=== PATIENT | female | born 1990 | race Caucasian/White ===

== ENCOUNTER 2018-01-22 05:49 | Inpatient (IN) ==
[~2018-01-22 05:49] MED LIST: Famotidine 20 MG/2 ML VIAL IVP PRN; Naloxone 0.4 MG/ML INJ IVP PRN; Ondansetron 4 MG/2 ML VIAL IVP PRN; Penicillin G Potassium 5,000,000 UNIT in 0.9 % Sodium Chloride Mini Bag 100 ML IVPB ONE; Ringers Solution, Lactated 1,000 ML IVC SCH; Ringers Solution, Lactated 1,000 ML ONE; cefTRIAXone 1,000 MG in 0.9 % Sodium Chloride Mini Bag 100 ML IVPB ONE
--- NOTE | 2018-01-22 05:55 | OB/GYN History & Physical ---
Date of Encounter: 01/22/18 Time of Encounter: 05:49 Assessment and Plan (1) 36 weeks gestation of Current visit: Yes Status: Acute admitted for delivery Unknown GBS: prophylaxis to be started (2) Methamphetamine use Current visit: Yes Status: Acute UDS to be sent Positive UDS on file for 01/20/18 (3) Marijuana use Current visit: Yes Status: Acute Patient reports last used in the past 24 hours UDS to be sent to lab (4) complicated by subutex maintenance, antepartum Current visit: Yes Status: Acute Patient currently in baby centered recovery group (5) Rh negative state in antepartum period Current visit: Yes Status: Acute Rhogam evaluation following delivery (6) Non-reactive NST (non-stress test) Current visit: Yes Status: Acute FHR 125 bpm minimal variability no accels late decels noted Dr. Ojeda notified of Cat. 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 Ojeda order blood cultures and antibiotics Hospitalist consult in per Dr. Ojeda History of Present Illness Chief complaint: Contractions HPI: Ms. Mccain is a 27 year old female @ 36w0d presents to labor and delivery drowsy and unable to stand on her own. Patient reports contractions. Denies LOF. Patient reports +FM. Patent report subutex and marijuana use. Patient had an UDS on 01/20/18 that was positive for Methamphetamines, Marijuana and subutex. Patient has not showed for last 2 care visits. 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 Psychiatric history: no psych history - Past Surgical History Surgical History: no surgical history - Social History Smoking Status: Current every day smoker Smokeless Tobacco Status: No Alcohol use: none Drug use: marijuana, methamphetamine, other (subutex) Occupational status: unemployed Current living situation: Home - Independent Activity Level: Independent ambulation Recent Out of Country Travel Within the Last 8 Weeks: No Exposure or Possible Exposure to Illness During Travel: No - Family History Mother History Unknown: Yes Obstetrical History - Pregnancies : 2 Para: 1 Term: 1 : 0 Ab's: 0 Livin Medications and Allergies TraMADol [Ultram] 50 mg PO Q6H PRN #12 tablet 11/29/14 [Rx] Tylenol 02/21/15 [History] Amoxicillin 875 mg PO BID #20 tablet 03/23/15 [Rx] OxyCODONE/APAP 5/325 [Percocet 5/325] 1 each PO Q6HR PRN #8 tablet 03/23/15 [Rx] Ibuprofen [Motrin] 400 mg PO Q6-8H PRN #30 tablet 03/31/15 [Rx] Penicillin VK 500 mg PO QID #40 tablet 03/31/15 [Rx] traMADol [Ultram] 50 mg PO Q6HR PRN #10 tablet 03/31/15 [Rx] Hydrocodone/Acetaminophen [[place] 5-325 Tablet] 1 tab PO TID PRN #14 tab 04/01/15 [Rx] Cyclobenzaprine [Flexeril] 10 mg PO TID #21 tablet 04/17/15 [Rx] Hydrocodone/Acetaminophen [[place] 5-325 Tablet] 1 tab PO Q6HR PRN #7 tab 01/16/16 [Rx] Ibuprofen [Motrin] 600 mg PO Q8HR PRN #30 tablet 01/16/16 [Rx] Sulfamethoxazole/Trimeth DS [Bactrim DS] 1 each PO BID #14 tablet 01/16/16 [Rx] Allergy/AdvReac Type Severity Reaction Status Date / Time No Known Allergies Allergy Verified 11/17/14 15:46 Review of System OB - Constitutional Constitutional ROS IM: excessive sweating, no fever(s), no headache(s) - Cardiovascular Cardiovascular: no chest pain, no leg edema, no lightheadedness, no palpitations, no pedal edema, no syncope - Respiratory Respiratory: no cough - Gastrointestinal Gastrointestinal: abdominal pain, cramping, no constipation, no diarrhea, no heartburn, no nausea, no vomiting - Genitourinary Genitourinary: no abnormal vaginal bleeding, no dysuria, no flank pain, no urinary incontinence, no urinary urgency, no vaginal odor, no vaginal pruritis Exam - Constitutional Constitutional: thin, diaphoretic - HEENT HEENT: Normocephaly, Mucus Membranes Moist - Neck Neck exam: full ROM, supple - Lungs Respiratory exam: CTAB - Cardiovascular Cardiovascular exam: RRR, +S1, +S2 - Abdomen Abdomen: Present: bowel sounds normal, gravid, non tender - Extremities Extremities exam: full ROM, normal inspection Deep Tendon Reflex Grade: 2+ Normal - Cervix Dilation: 4 (per RN) - Uterus Uterus exam: Present: normal size, normal contour - Comments Comments: Patient appears to be weak and drowsy. Patient is diaphoretic. Patient has multiple scabs and scratches all over her body. FHR 125 bpm minimal variability with no accels and late decles. Cat. [address] Ojeda notified of tracing and patient exam. Dr. Ojeda to resume care of patient at this time. Dr. Ojeda at bedside. Results All other labs normal. - VTE Reasons for not Prescribing Prophylaxis: Treatment not Indicated - Low risk for VTE
[2018-01-22 06:06] LABS: Basophils % 0.2 %; Eosinophils % 0.1 %; Hematocrit 35.8 % (35.3-44.9); Immature Granulocytes % 6.5 % (0-4); Lymphocytes # 1.1 K/mcL (0.6-4.6); Lymphocytes % 5.5 %; Mean Corpuscular HGB Conc 33.5 g/dL (31.6-35.5); Mean Corpuscular Hemoglobin 28.2 pg (28.0-33.3); Mean Corpuscular Volume 84.2 fL (83.0-100.0); Mean Platelet Volume 10.2 fL (9.4-12.4); Monocytes # 1.1 K/mcL (0.0-1.3); Monocytes % 5.3 %; Neutrophils # 16.9 K/mcL (1.6-8.9); Platelet Count 101 K/mcL (140-400); Red Blood Count 4.25 M/mcL (3.82-4.97); Red Cell Distribution Width 13.9 % (11.5-14.5); Segmented Neutrophils % 82.4 %
[2018-01-22 06:21] LABS: Alanine Aminotransferase 6 Units/L (7-52); Aspartate Amino Transferase 14 Units/L (13-39); BUN/Creatinine Ratio 17 (6-26); Blood Urea Nitrogen 22 mg/dL (6-20); Lactate Dehydrogenase 200 Units/L (140-271); Uric Acid 8.7 mg/dL (2.3-7.6); eGFR For Non-African Americans 50 (> 60)
[2018-01-22 06:31] LABS: Platelet Estimate Slight Decrease (Normal)
[2018-01-22] MEDS ORDERED: Metoclopramide 10 MG/2 ML VIAL IVP ONE (06:31)
--- NOTE | 2018-01-22 06:35 | Anesthesia Evaluation PreOp ---
Date of Encounter: 01/22/18 Time of Encounter: 06:33 - Past History Planned Operation: Primary C/S Cardiac History: Denies any Significant Hx Pulmonary History: Denies Any Significant HX [employer] History: Denies Any Significant HX Other Medical History: Other (IV Drug Abuse, Marijuana use, Previous Meth abuse) Anesthesia History: No Prior Anesthetic Complications (no previous surgeries) Alcohol Use: none Drug use: marijuana, methamphetamine, other (subutex) Medications and Allergies TraMADol [Ultram] 50 mg PO Q6H PRN #12 tablet 11/29/14 [Rx] Tylenol 02/21/15 [History] Amoxicillin 875 mg PO BID #20 tablet 03/23/15 [Rx] OxyCODONE/APAP 5/325 [Percocet 5/325] 1 each PO Q6HR PRN #8 tablet 03/23/15 [Rx] Ibuprofen [Motrin] 400 mg PO Q6-8H PRN #30 tablet 03/31/15 [Rx] Penicillin VK 500 mg PO QID #40 tablet 03/31/15 [Rx] traMADol [Ultram] 50 mg PO Q6HR PRN #10 tablet 03/31/15 [Rx] Hydrocodone/Acetaminophen [[place] 5-325 Tablet] 1 tab PO TID PRN #14 tab 04/01/15 [Rx] Cyclobenzaprine [Flexeril] 10 mg PO TID #21 tablet 04/17/15 [Rx] Hydrocodone/Acetaminophen [[place] 5-325 Tablet] 1 tab PO Q6HR PRN #7 tab 01/16/16 [Rx] Ibuprofen [Motrin] 600 mg PO Q8HR PRN #30 tablet 01/16/16 [Rx] Sulfamethoxazole/Trimeth DS [Bactrim DS] 1 each PO BID #14 tablet 01/16/16 [Rx] Allergy/AdvReac Type Severity Reaction Status Date / Time No Known Allergies Allergy Verified 11/17/14 15:46 - Meds/Allergy Pre-op Review Medications Reviewed: Yes Allergies Reviewed: Yes Beta Blockers on Current Med List: No Anesthesia Results - Labs 01/22/18 05:40 01/22/18 05:40 Anesthesia Exam O2 Sat Height 1.57 m Weight 50.01 kg NPO (# of Hours): 8 Pain Scale: 6 Pain Scale Used: Numeric (1 - 10) - HEENT Pupil (Motor): Pupils equal Mallampati: II Teeth: Normal Oral Opening: Greater than 3 - [employer] LOC: Oriented [employer] Motor: Normal RUE, Normal LUE, Normal RLE, Normal LLE, Normal Face [employer] Sensory: Normal: RUE, LUE, RLE, LLE, Face - Cardiac Rhythm: Regular Murmur: None JVD: No Carotid Bruit: No - Pulmonary Breath Sounds: bilateral Clear Respiratory Effort: Symmetrical Anesthesia Assess/Plan ASA Score: 2 Modified [place] Scale for Level of Consciousness: Cooperative, oriented, and tranquil Anesthetic Plan: General (if c/s indicated) Autologous Blood: Yes Monitoring Plan: Standard Monitors Recovery Plan: PACU
[2018-01-22 06:46] LABS: Amphetamine Screen,Urine Negative ng/mL (Cutoff=1000); Barbiturate Screen,Urine Negative ng/mL (Cutoff=200)
[2018-01-22 06:47] LABS: Benzodiazepines Screen,Urine Negative ng/mL (Cutoff=300); Cannabinoid Screen,Urine Negative ng/mL (Cutoff = 50); Cocaine Screen,Urine Negative ng/mL (Cutoff= 300)
[2018-01-22 06:48] LABS: Opiate Screen,Urine Negative ng/mL (Cutoff=300); Phencyclidine Screen,Urine Negative ng/mL (Cutoff=25)
--- NOTE | 2018-01-22 07:17 | Event Note ---
Date of Encounter: 01/22/18 Time of Encounter: 07:51 Late entry- AROM blood tinged and meconium stained fluid. CVX 8/100/+2. FHT's are 140's with decreased variability. Expect .
[2018-01-22] MEDS ORDERED: Penicillin G Potassium 2,500,000 UNIT in 0.9 % Sodium Chloride 100 ML IVPB SCH (08:00)
[2018-01-22] MEDS ORDERED: Meropenem 1,000 MG in Water for inj. (sterile) 20 ML 10 ML IVP SCH (08:00)
[2018-01-22] MEDS ORDERED: 0.9 % Sodium Chloride 1,000 ML IVC ONE (08:07)
[2018-01-22] MEDS ORDERED: 0.9 % Sodium Chloride 1,000 ML ONE (08:08)
--- NOTE | 2018-01-22 08:16 | OB/GYN Procedure Note ---
Delivery - Delivery Date: 01/22/18 Provider: Rakesh Ojeda Intrapartum events: meconium, precipitous labor- <3hr Delivery induction: none Delivery monitor: external FHT, external uterine Anesthesia: local Quantitated Blood Loss: 150 - Infant (s) A Infant Delivery Date: 01/22/18 Delivery Time: 07:29 Presentation: vertex Position: JOLIE Route of delivery: Gender: Male Viability: Viable Pounds: 6 Ounces: 3 at 1 minute: 7 at 5 mins: 9 Shoulder Dystocia: not encountered Specimens collected: cord blood, venous cord gases, arterial cord gases Placenta: spontaneous Cord: 3 umbilical vessels - Repair Laceration Description: Perineal - 2nd Degree - Complications Delivery complications: meconium - Disposition Mom disposition: stable in LDR disposition: stable in LDR - Comments Comments: Pt admitted in labor at 35 weeks gestation with signs and symptoms of sepsis, likely urosepsis as she hasn't yet taken her atb's that were prescribed. She is on Meropenum and Vancomycin and given IVF. At time of amniotomy blood tinged MSF was noted and she was 7 cm. Her Lactic acid is 5.7. She is now s/p vacuum assisted vaginal delivery of liveborn male infant 6lb 3 oz with apgars of 7 at 1 min and 9 at 5 min. The vacuum was applied as pt was b/c of FHT's 50.. I did also cut MLE to expedite delivery. We has spont delivery of Meconium stained placenta. The laceration was repaired under local anesthesia with 3-0 Vicryl. Pt tolerated well. EBL 150 cc
[2018-01-22] MEDS ORDERED: Oxytocin 20 units/ LR 1000 mL 20 UNIT/1,000 ML BAG IVC ONE (09:08)
[2018-01-22] MEDS ORDERED: 0.9 % Sodium Chloride 500 ML ONE (09:12)
[2018-01-22] MEDS ORDERED: Norepinephrine 4 MG in D5% in Water 250 ML IVC SCH (09:15)
[2018-01-22] MEDS ORDERED: Aminoglycoside Consult 1 EACH MC ONE (09:24)
[2018-01-22] MEDS ORDERED: Nicotine 21 MG PATCH.TD24 TD SCH (09:30)
[2018-01-22 15:57] LABS: Acinetobacter baumannii by PCR Not Detected (Not Detect); Candida albicans by PCR Not Detected (Not Detect); Candida glabrata by PCR Not Detected (Not Detect); Candida krusei by PCR Not Detected (Not Detect); Candida parapsilosis by PCR Not Detected (Not Detect); Candida tropicalis by PCR Not Detected (Not Detect); Enterobacter cloacae Cmplx PCR Not Detected (Not Detect); Enterobacteriaceae by PCR Not Detected (Not Detect); Enterococcus by PCR Not Detected (Not Detect); Escherichia coli by PCR Not Detected (Not Detect); Klebsiella oxytoca by PCR Not Detected (Not Detect); Klebsiella pneumoniae by PCR Not Detected (Not Detect); Proteus by PCR Not Detected (Not Detect); Pseudomonas aeruginosa by PCR Not Detected (Not Detect); Serratia marcescens by PCR Not Detected (Not Detect); Staphylococcus aureus by PCR DETECTED (Not Detect); Staphylococcus by PCR DETECTED (Not Detect); Streptococcus agalactiae(B)PCR Not Detected (Not Detect); Streptococcus by PCR Not Detected (Not Detect); Streptococcus pneumoniae PCR Not Detected (Not Detect); Streptococcus pyogenes (A) PCR Not Detected (Not Detect); mecA Methicillin-Resist Gene Not Detected (Not Detect)
[2018-01-22 20:25] LABS: Acinetobacter baumannii by PCR Not Detected (Not Detect); Candida albicans by PCR Not Detected (Not Detect); Candida glabrata by PCR Not Detected (Not Detect); Candida krusei by PCR Not Detected (Not Detect); Candida parapsilosis by PCR Not Detected (Not Detect); Candida tropicalis by PCR Not Detected (Not Detect); Enterobacter cloacae Cmplx PCR Not Detected (Not Detect); Enterobacteriaceae by PCR Not Detected (Not Detect); Enterococcus by PCR Not Detected (Not Detect); Escherichia coli by PCR Not Detected (Not Detect); Klebsiella oxytoca by PCR Not Detected (Not Detect); Klebsiella pneumoniae by PCR Not Detected (Not Detect); Proteus by PCR Not Detected (Not Detect); Pseudomonas aeruginosa by PCR Not Detected (Not Detect); Serratia marcescens by PCR Not Detected (Not Detect); Staphylococcus aureus by PCR DETECTED (Not Detect); Staphylococcus by PCR DETECTED (Not Detect); Streptococcus agalactiae(B)PCR Not Detected (Not Detect); Streptococcus by PCR Not Detected (Not Detect); Streptococcus pneumoniae PCR Not Detected (Not Detect); Streptococcus pyogenes (A) PCR Not Detected (Not Detect); mecA Methicillin-Resist Gene Not Detected (Not Detect)
== END 2018-01-22 09:25 | disposition other institution (70) | DRG 560 ==
LOC: 1NENULAB
PROVIDERS: ADMIT Advanced Practice Midwife; ATTEND Advanced Practice Midwife

== ENCOUNTER 2018-03-06 11:20 | Inpatient (IN) ==
[2018-03-06] MEDS ORDERED: Aspirin 81 MG TAB.CHEW PO ONE (11:37)
[2018-03-06] MEDS ORDERED: 0.9 % Sodium Chloride 500 ML IVC ONE (11:37)
[2018-03-06 12:22] LABS: Bilirubin,Urine Negative (Negative); Blood,Urine Negative (Negative); Clarity,Urine Clear (Clear); Color,Urine Yellow (Yellow); Glucose,Urine (UA) Normal (Normal); Ketones,Urine Negative (Negative); Leukocyte Esterase,Urine Negative (Negative); Nitrite,Urine Negative (Negative); Protein,Urine Negative (Neg-Trace); Specific Gravity,Urine 1.007 (1.010-1.025); Urobilinogen,Urine Normal (Normal)
--- NOTE | 2018-03-06 12:24 | Emergency Department Note ---
Disposition Clinical Impression: Chest pain, Endocarditis, Acute renal insufficiency Disposition: Admitted As Inpatient Condition: Fair Forms: ED Satisfaction Letter Time of Disposition: 13:15 Chest Pain HPI - General Chief Complaint: ED Chest Pain Stated Complaint: Chest Pain Time Seen by Provider: 03/06/18 11:25 Source: EMS Mode of arrival: EMS Limitations: no limitations Vital Signs Reviewed: Yes Nursing Notes Reviewed: Yes - History of Present Illness HPI Narrative: Patient presents emergency room by EMS from a rehabilitation facility. She has been a resident there for the last several days after being discharged from [facility]. Patient was seen at [facility] and diagnosed with endocarditis and end up having a delivery of a child at that point as well. Since then she has been doing well but she signed out A[facility] from the [facility] for antibiotic regimen. She is still complaining of persistent chest pain secondary to the endocarditis and finally decided come in for evaluation. Pt complaint: chest pain Onset (ago): week(s) Duration: constant Pain Location: substernal Severity: moderate Severity scale (1-10): 8 Quality: sharp Pain Radiation: none Improves with: nothing Worsens with: nothing Associated symptoms: Denies: nausea, vomiting, diaphoresis Treatments prior to arrival chest pain: none - Related Data Home Medications Medication Instructions Recorded Confirmed Amoxicillin 500 mg PO QID 02/07/18 02/07/18 Buprenorphine HCl/Naloxone HCl 1 each SL TID 02/07/18 02/07/18 [Suboxone 8 mg-2 mg Sl Film] Allergies Allergy/AdvReac Type Severity Reaction Status Date / Time No Known Allergies Allergy Verified 02/07/18 23:47 All systems ED: reviewed and negative except as stated. Review of Systems: As Per HPI Constitutional: Reports: fever, chills. Denies: weakness, weight change ENT ED: Denies: ear pain, throat pain, congestion Cardiovascular: Reports: chest pain. Denies: palpitations, dyspnea on exertion, orthopnea Respiratory: Denies: cough, dyspnea, wheezes Gastrointestinal: Denies: abdominal pain, nausea, vomiting, diarrhea Genitourinary: Denies: urgency, dysuria Musculoskeletal: Denies: back pain, neck pain Neurological: Denies: headache, weakness Chest Pain PMH - Past Medical History Medical history: Reports: hepatitis, other Surgical history: Reports: no surgical history Psychiatric history: Reports: anxiety, depression, panic disorder DIRECTORY CARRIER history: Reports: no DIRECTORY CARRIER history - Social History Smoking Status: Current every day smoker Alcohol use: Reports: none Drug use: Reports: none, marijuana, methamphetamine, other Physical Exam - General Limitations: no limitations General appearance: alert - Head Head exam: atraumatic, normocephalic, normal inspection - ENT ENT exam: normal exam, normal oropharynx, mucous membranes moist - Neck Neck exam: Present: normal inspection, full ROM, trachea midline. Absent: tend erness, meningismus, lymphadenopathy - Chest Chest inspection: Present: normal inspection, symmetric chest wall rise. Absent: tenderness - Respiratory Respiratory exam: Present: normal lung sounds bilaterally. Absent: respiratory distress, wheezes - Cardiovascular Cardiovascular exam: Present: regular rate, systolic murmur - Abdominal Exam Abdominal exam: Present: soft, Non-Tender, normal bowel sounds. Absent: tenderness, distention, guarding, rebound, rigidity - Extremities Exam Extremities exam: Present: normal inspection, full ROM. Absent: tenderness - Back Exam Back exam: Present: normal inspection, full ROM. Absent: tenderness - Neurological Exam Neurological exam: Present: alert, oriented X3, CN II-XII intact, normal gait - Skin Skin exam: Present: warm, dry, intact, normal color Course Course Narrative: Patient seen and examined the time of arrival. See history of present illness. Patient is currently in a rehabilitation facility. Once the facility found out that she is diagnosed with endocarditis and she has had persistent pain that the medical coding manager there decided that she needed to be seen in the emergency room. Patient was diagnosed with endocarditis approximately 2 months ago and was transferred to [facility]. They completed the treatment course up at their facility. At that time she happened to be . She delivered wall up at their facility. The child is currently in, medical care. The patient is also in stable placement at this point for her rehabilitation. Patient signed h erself out initially without antibiotics and has not received any antibiotics for her endocarditis. She has had intermittent fevers at home ever since leaving the hospital. Patient denies any falls trauma or injury. She has not used any IV drugs in almost 2 months. She was taking Subutex until February 10 when she stopped that medication has not used anything since then. Vital signs on presentation here are stable. Patient is afebrile. Patient will have repeat blood cultures drawn 3 here in the emergency room. First dose of vancomycin will be given. CBC chemistry troponin will be collected as well. Chest x-ray to be resulted. Physical exam shows a thin appearing female. No visible track marsh on the arms. She does have an auscultated murmur. She is known to have a atrial vegetation which will be confirmed by the workup is completed up at [facility]. These records are requested at this time. Patient labs fluids given as needed and regiment will be started. Patient will require admission for definitive outpatient management planning. Otherwise the patient is clinically stable. See detailed documentation of the initial physical exam. Patient will be monitored in emergency room until decision for disposition as completed. - Reevaluation(s) Reevaluation #1: Patient is found to have acute renal insufficiency with a creatinine of 2.16. This is new in comparison to her previous creatinine. Single dose of vancomycin was given pharmacy will be recommended to renally dose. Patient will be admitted for fluid resuscitation IV antibiotics and continuation of care. The remainder of her labs are unremarkable. The paperwork from [facility] still has not been received. Patient will be informed of and disposition completed. The hospitalist Dr. Pardo reviewed the case. He is comfortable with the patient being admitted with antibiotics fluids and evaluation. I am still waiting for the records but otherwise he is comfortable with the patient being admitted for continuation of care. She has not shown any acute signs of hemodynamic instability. We will inform the patient and recommended admission for acute renal insufficiency. Appropriate intervention has been given Time: 13:14 Vital Signs Temperature 98.7 F 03/06/18 11:25 Pulse Rate 98 03/06/18 11:25 Respiratory Rate 18 03/06/18 11:25 Blood Pressure 125/84 03/06/18 11:25 O2 Sat by Pulse Oximetry 100 03/06/18 11:25 Temperature 98.7 F 03/06/18 11:25 Pulse Rate 98 03/06/18 11:25 Respiratory Rate 18 03/06/18 11:25 Blood Pressure 125/84 03/06/18 11:25 O2 Sat by Pulse Oximetry 100 03/06/18 11:25 Oxygen Delivery Oxygen Delivery Room Air Chest Pain - MDM Narrative Medical decision making narrative: Chest pain, endocarditis, history of IV drug abuse - Medical Records Medical records reviewed: Yes I reviewed the patient's medical records. - Lab Data Lab results reviewed: Yes I reviewed the patient's lab results. Result diagrams: 03/06/18 12:15 03/06/18 12:15 Lab Results 03/06/18 03/06/18 03/06/18 Range/Units 12:01 12:01 12:15 WBC (4.3-11.1) K/mcL RBC (3.82-4.97) M/mcL Hgb (11.5-15.4) g/dL Hct (35.3-44.9) % MCV (83.0-100.0) fL MCH (28.0-33.3) pg MCHC (31.6-35.5) g/dL RDW (11.5-14.5) % Plt Count (140-400) K/mcL MPV (9.4-12.4) fL Immature Gran % (0-4) % Seg Neutrophils % % Lymphocytes % % Monocytes % % Eosinophils % % Basophils % % Neutrophils # (1.6-8.9) K/mcL Lymphocytes # (0.6-4.6) K/mcL Monocytes # (0.0-1.3) K/mcL Eosinophils # (0.0-0.6) K/mcL Basophils # (0.0-0.2) K/mcL PT 10.1 (9.4-12.1) Seconds INR 0.9 APTT 28.2 (26.0-36.0) Seconds Sodium (136-145) mEq/L Potassium (3.5-5.1) mEq/L Chloride (98-107) mEq/L Carbon Dioxide (23-29) mEq/L BUN (6-20) mg/dL Creatinine (0.60-1.20) mg/dL Est GFR ( Amer) (> 60) Est GFR (Non-Af Amer) (> 60) BUN/Creatinine Ratio (6-26) Glucose (70-105) mg/dL Calculated Osmolality (280-300) Calcium (8.6-10.3) mg/dL Troponin I (< 0.04) ng/mL Urine Color Yellow (Yellow) Urine Clarity Clear (Clear) Urine pH 6.0 (5.0-8.0) pH Units Ur Specific [place] 1.007 L (1.010-1.025) Urine Protein Negative (Neg-Trace) mg/dL Urine Glucose (UA) Normal (Normal) mg/dL Urine Ketones Negative (Negative) mg/dL Urine Blood Negative (Negative) Urine Nitrite Negative (Negative) Urine Bilirubin Negative (Negative) Urine Urobilinogen Normal (Normal) mg/dL Ur Leukocyte Esterase Negative (Negative) Ur Culture Indicated? NO (NO) Urine Test Negative (Negative) 03/06/18 03/06/18 Range/Units 12:15 12:15 WBC 7.6 (4.3-11.1) K/mcL RBC 4.50 (3.82-4.97) M/mcL Hgb 12.5 (11.5-15.4) g/dL Hct 39.1 (35.3-44.9) % MCV 86.9 (83.0-100.0) fL MCH 27.8 L (28.0-33.3) pg MCHC 32.0 (31.6-35.5) g/dL RDW 15.9 H (11.5-14.5) % Plt Count 260 (140-400) K/mcL MPV 8.9 L (9.4-12.4) fL Immature Gran % 0.7 (0-4) % Seg Neutrophils % 62.9 % Lymphocytes % 26.8 % Monocytes % 5.8 % Eosinophils % 3.0 % Basophils % 0.8 % Neutrophils # 4.8 (1.6-8.9) K/mcL Lymphocytes # 2.0 (0.6-4.6) K/mcL Monocytes # 0.4 (0.0-1.3) K/mcL Eosinophils # 0.2 (0.0-0.6) K/mcL Basophils # 0.1 (0.0-0.2) K/mcL PT (9.4-12.1) Seconds INR APTT (26.0-36.0) Seconds Sodium 139 (136-145) mEq/L Potassium 4.0 (3.5-5.1) mEq/L Chloride 106 (98-107) mEq/L Carbon Dioxide 24 (23-29) mEq/L BUN 11 (6-20) mg/dL Creatinine 0.49 L (0.60-1.20) mg/dL Est GFR ( Amer) > 60 (> 60) Est GFR (Non-Af Amer) > 60 (> 60) BUN/Creatinine Ratio 22 (6-26) Glucose 92 (70-105) mg/dL Calculated Osmolality 287 (280-300) Calcium 9.6 (8.6-10.3) mg/dL Troponin I < 0.03 (< 0.04) ng/mL Urine Color (Yellow) Urine Clarity (Clear) Urine pH (5.0-8.0) pH Units Ur Specific [place] (1.010-1.025) Urine Protein (Neg-Trace) mg/dL Urine Glucose (UA) (Normal) mg/dL Urine Ketones (Negative) mg/dL Urine Blood (Negative) Urine Nitrite (Negative) Urine Bilirubin (Negative) Urine Urobilinogen (Normal) mg/dL Ur Leukocyte Esterase (Negative) Ur Culture Indicated? (NO) Urine Test (Negative) - Radiology Data Radiology results reviewed: Yes I reviewed the patient's radiology results. Chest x-ray reviewed by myself and confirmed by the radiologist showing no acute etiology - EKG Data EKG attestation: Yes I reviewed and interpreted this EKG. EKG results narrative: EKG shows sinus rhythm. Heart rate of 97. NV interval 154. QRS duration of 84. QTC of 432. No acute signs of ST segment elevation or abnormality. No acute signs of conduction delays. [place] appears to be normal. No acute signs of WPW or Brugada syndrome. Heart Score - Score History: Slightly Suspicious EKG: Normal Age: Less than 45 Risk Factors: 1-2 risk factors Troponin: Less than normal limit HEART Score Total: 1
[2018-03-06 12:34] LABS: Basophils # 0.1 K/mcL (0.0-0.2); Basophils % 0.8 %; Eosinophils # 0.2 K/mcL (0.0-0.6); Hematocrit 39.1 % (35.3-44.9); Hemoglobin 12.5 g/dL (11.5-15.4); Immature Granulocytes % 0.7 % (0-4); Lymphocytes % 26.8 %; Mean Corpuscular Hemoglobin 27.8 pg (28.0-33.3); Mean Corpuscular Volume 86.9 fL (83.0-100.0); Mean Platelet Volume 8.9 fL (9.4-12.4); Monocytes # 0.4 K/mcL (0.0-1.3); Monocytes % 5.8 %; Neutrophils # 4.8 K/mcL (1.6-8.9); Platelet Count 260 K/mcL (140-400); Red Cell Distribution Width 15.9 % (11.5-14.5); Segmented Neutrophils % 62.9 %
[2018-03-06 12:43] LABS: INR 0.9; Prothrombin Time 10.1 Seconds (9.4-12.1)
[2018-03-06 12:46] LABS: Activated Partial Thrombo Time 28.2 Seconds (26.0-36.0)
[2018-03-06 12:52] LABS: Troponin I < 0.03 ng/mL (< 0.04)
[2018-03-06 12:54] LABS: BUN/Creatinine Ratio 22 (6-26); Blood Urea Nitrogen 11 mg/dL (6-20); Calcium 9.6 mg/dL (8.6-10.3); Carbon Dioxide 24 mEq/L (23-29); Chloride 106 mEq/L (98-107); Glucose 92 mg/dL (70-105); Osmolality,Calculated 287 (280-300); Sodium 139 mEq/L (136-145); eGFR For Non-African Americans > 60 (> 60)
--- NOTE | 2018-03-06 13:19 | Emergency Department Note ---
START Narrative - START START: Documentation was placed on patient this time. The patient does not show any acute signs of acute kidney injury. Patient will be monitored here until the paperwork from [facility] was collected and then disposition will be determined. 1415 Patient does have what appears to be MRSA bacteremia from labs at [facility]. She has not been clinically treated for this. Cefepime has been added on to the treatment course at this time for endocarditis. Patient will be admitted for continuation of care and outpatient director security risk management Dr. Pardo has been informed and will continue the care in the hospital setting. Patient is otherwise stable will be monitored here in the emergency department until the admission process is completed. No other recommendations or concerns. Patient will be admitted for continuation of care
[2018-03-06] MEDS ORDERED: Cefepime HCl 2,000 MG in 0.9 % Sodium Chloride Mini Bag 100 ML IVPB STA (14:29)
--- NOTE | 2018-03-06 15:19 | Internal Med History&Physical ---
Date of Encounter: 03/06/18 Time of Encounter: 15:00 Internal Medicine - H&P: HPI Chief complaint: chest pain, send from rehab History of present illness: Ms. Mccain is a 27 year old female with past medical history of endocarditis and pneumonia was sent from drug rehabilitation facility because of chest pain. Patient was here in the month of December when she was and was found to have endocarditis. After delivery patient was transferred to [facility] for further ca re patient received IV antibiotics and was told she had pneumonia. She was in ICU for 2-3 days. She was discharged to a correction with IV antibiotics however she left AMA because she felt worried about her baby. She has not had any antibiotic since then. She has been in a drug rehabilitation program for last several days however because of the on and off chest pain patient was asked by the doctor to come to ER. Patient has been having on-and-off chest pain aggravated by deep breath since she was discharged from [facility]. Pain is mostly on the left side of her chest occasionally on the right side. It is associated with fevers as well as night time chills. She has not been able to sleep well difficult due to chills. She has associated skin lesions on both her arms and both her legs. Patient's last IV drug use was before her last admission. Per ER doctor patient likely had MRSA bacteremia at [facility]. Patient was started on vancomycin and cefepime in the ER and received IV fluids. On interview patient confirms above-mentioned history. Currently with mild chest pain worsened with deep breaths. Denies any nausea vomiting. Admits to having some palpitation. Denies any difficulty breathing. Past Med Surg Social Fam HX - Past Medical History Attestation: Yes The following information was validated with the patient. Medical history: hepatitis, other Additional medical history: HEP C, DRUG USE , PNEUMONIA, endocarditis, IVDU Psychiatric history: anxiety, depression, panic disorder - Past Surgical History Surgical History: no surgical history - Social History Smoking Status: Current every day smoker Smokeless Tobacco Status: No Alcohol use: none Drug use: none, marijuana, methamphetamine, IV Drug Use, other - Family History Father Hx Family Psychosocial Disorders: Yes (drug overdose) Internal Medicine - H&P: Meds Amoxicillin 500 mg PO QID 02/07/18 [History] Buprenorphine HCl/Naloxone HCl [Suboxone 8 mg-2 mg Sl Film] 1 each SL TID 02/07/18 [History] Allergy/AdvReac Type Severity Reaction Status Date / Time No Known Allergies Allergy Verified 02/07/18 23:47 All Systems PM: A 10-system review of systems was performed and is negative for pertinent findings except as documented above in the HPI. - Constitutional Vitals: Temp Pulse Resp BP Pulse Ox 98.7 F 103 18 121/81 100 03/06/18 11:25 03/06/18 13:19 03/06/18 13:19 03/06/18 13:19 03/06/18 13:19 Exam: Constitutional: Vitals as noted. Conversant. No Apparent Distress. Eyes : Sclera white, conjunctiva clear, no lid lag, PEARLA. ENT : Grossly normal hearing. Oropharyngeal exam unremarkable. Moist mucus membranes. No JVD, no cervical lymphadenopathy. no thyromegaly or mass. Respiratory : Occasional rhonchi on Left anterior and posterior lung garcia. No accessory muscle use, rales, Cardiovascular : Tachycardic +S1, +S2. Early diastolic murmur, no gallop, rubs. No chest wall tenderness GI/Abdominal : Soft, Non-tender, Non-distended, normal bowel sounds, soft, no peritoneal signs. no orgenomegaly or mass appreciated. no hernia. Musculoskeletal: no deformity noted. no edema or cyanosis. warm extremities, pulses palpable and symmetrical in UE/LE. no calf tenderness. Neurological: AO X3, CN II-XII grossly intact, grossly normal motor and sensory exam. Skin: Papular non-tender lesion located on both arms and legs. Pych: tearful, Intact memory. AOx3. Internal Med - H&P Results - Labs CBC & Chem 7: 03/06/18 12:15 03/06/18 12:15 Labs: Short CBC 03/06/18 Range/Units 12:15 WBC 7.6 (4.3-11.1) K/mcL Hgb 12.5 (11.5-15.4) g/dL Hct 39.1 (35.3-44.9) % Plt Count 260 (140-400) K/mcL Neutrophils # 4.8 (1.6-8.9) K/mcL BMP 03/06/18 12:15 Sodium 139 Potassium 4.0 Chloride 106 Carbon Dioxide 24 BUN 11 Creatinine 0.49 L Glucose 92 Calcium 9.6 Cardiac Enzymes 03/06/18 Range/Units 12:15 Troponin I < 0.03 (< 0.04) ng/mL Urine 03/06/18 Range/Units 12:01 Urine Color Yellow (Yellow) Urine Clarity Clear (Clear) Urine pH 6.0 (5.0-8.0) pH Units Ur Specific [place] 1.007 L (1.010-1.025) Urine Protein Negative (Neg-Trace) mg/dL Urine Glucose (UA) Normal (Normal) mg/dL - Impressions ITS Impressions Chest X-Ray 03/06/18 11:37 IMPRESSION: Improving but persistent bilateral thin wall cavitary lesions concerning for septic emboli. Correlate CT imaging as warranted. D/ / 03/06/2018 13:50:33 Rich Michel MD / patricia Interpreting Provider: Rich Michel MD - Assessment and plan (1) Endocarditis Current Visit: Yes Status: Acute Assessment and plan: - Patient with history of endocarditis not fully treated. Patient has stigmata of embolic phenomena with skin lesion as well as cavitary lung lesion - Report form ER doctor with history of MRSA at [facility] - EKG without any conduction pathology - Continue patient on vancomycin and cefepime - Continue IV fluids - Blood cultures collected in the ER - Obtain echocardiogram - Infectious disease consulted. Qualifiers: Endocarditis type: infective Infective endocarditis organism: bacterial Chronicity: unspecified Qualified Code(s): I33.0 - Acute and subacute infective endocarditis (2) Cavitary lesion of lung Current Visit: Yes Status: Acute Assessment and plan: - Likely representing embolic phenomena from endocarditis - Continue empiric antibiotics (3) Chest pain Current Visit: Yes Status: Acute Assessment and plan: - Likely pleuritic pain from septic emboli in the lungs - Troponin 1 negative and EKG without ischemic changes Qualifiers: Chest pain type: precordial pain Qualified Code(s): R07.2 - Precordial pain (4) Methamphetamine use Current Visit: No Status: Acute Assessment and plan: - Patient on Subutex - We will come form with pharmacy and start her after. (5) Anxiety Current Visit: Yes Status: Acute Assessment and plan: - Patient mentions she is on hydroxyzine - We will confirm with her pharmacy and start her on medication - Time Spent With Patient Total time spent is greater than 50% in coordination of care (as documented) at patient's floor/unit and/or counseling patient:
[2018-03-06] MEDS ORDERED: Naloxone 0.4 MG/ML INJ IVP PRN (15:44)
[2018-03-06] MEDS ORDERED: Ringers Solution, Lactated 1,000 ML IVC SCH (16:00)
[2018-03-06] MEDS ORDERED: Ketorolac 15 MG/ML VIAL IVP ONE (20:48)
[2018-03-06] MEDS: Ringers Solution, Lactated 1,000 ML IVC SCH (21:22)
[2018-03-06] MEDS ORDERED: Melatonin 3 MG TABLET PO ONE (21:43)
[2018-03-06] MEDS ORDERED: traMADol 50 MG TABLET PO ONE (22:42)
--- NOTE | 2018-03-06 22:47 | Event Note ---
Date of Encounter: 03/06/18 Time of Encounter: 10:15 Notified by nurse of patient continuing to complain of chest pain and headache. Assessed patient at bedside. States chest pain and headache is the same as shes been having without any changes, however pain medication she received earlier was not effective. Vitals remain stable, patient on tele monitor, no new symptoms. Will order ultram and tylenol.
[2018-03-06] MEDS: Nicotine 7 MG PATCH.TD24 TD SCH (22:58)
[2018-03-07] MEDS: Cefepime HCl 2,000 MG in Water for inj. (sterile) 20 ML 20 ML IVP SCH ×2 (00:10→08:14)
[2018-03-07 05:44] LABS: Basophils % 0.3 %; Eosinophils # 0.4 K/mcL (0.0-0.6); Hematocrit 36.8 % (35.3-44.9); Hemoglobin 11.5 g/dL (11.5-15.4); Immature Granulocytes % 0.3 % (0-4); Lymphocytes # 2.3 K/mcL (0.6-4.6); Lymphocytes % 26.3 %; Mean Corpuscular HGB Conc 31.3 g/dL (31.6-35.5); Mean Corpuscular Hemoglobin 27.5 pg (28.0-33.3); Mean Platelet Volume 9.4 fL (9.4-12.4); Monocytes # 0.5 K/mcL (0.0-1.3); Monocytes % 5.7 %; Neutrophils # 5.5 K/mcL (1.6-8.9); Platelet Count 234 K/mcL (140-400); Red Blood Count 4.18 M/mcL (3.82-4.97); Red Cell Distribution Width 16.1 % (11.5-14.5); Segmented Neutrophils % 62.4 %
[2018-03-07] MEDS ORDERED: traMADol 50 MG TABLET PO ONE ×2 (05:53→20:43)
[2018-03-07 06:04] LABS: BUN/Creatinine Ratio 25 (6-26); Blood Urea Nitrogen 14 mg/dL (6-20); Calcium 9.5 mg/dL (8.6-10.3); Carbon Dioxide 23 mEq/L (23-29); Chloride 109 mEq/L (98-107); Glucose 85 mg/dL (70-105); Osmolality,Calculated 284 (280-300); Potassium 4.5 mEq/L (3.5-5.1); Sodium 137 mEq/L (136-145); eGFR For Non-African Americans > 60 (> 60)
[2018-03-07] MEDS: Ringers Solution, Lactated 1,000 ML IVC SCH ×3 (07:40→21:00)
[2018-03-07] MEDS ORDERED: Aminoglycoside Consult 1 EACH MC ONE (08:08)
--- NOTE | 2018-03-07 08:35 | Infectious Disease Consult ---
Date of Encounter: 03/07/18 Time of Encounter: 12:11 Assessment and Plan (1) MSSA bacteremia Status: Acute Assessment and plan: Previous cultures positive for MSSA. 01/22/18 MSSA 2/2 ([facility]) 01/22/18 C. dublinienesis 1/2 ([facility]) 01/23/18 MSSA 2/2 01/24/18 MSSA 2/2 01/25/18 MSSA 2/2 01/26/18 negative x 2 01/27/18 MSSA 2/2 01/28/18 negative x 2 Likely secondary to IV drug use. Complicated due to septic emboli in the lungs and endocarditis. Inadequately treated due to the patient leaving [facility] AMA. Not treated since 01/29/18. No sepsis criteria at this time. Currently on Vanc and Cefepime. Recommendations: Await repeat blood cultures. Check HIV and Hepatitis B serologies. Repeat TTE pending. Consider MRI of the brain to rule out septic emboli. Discontinue Cefepime. Discontinue Vancomycin. Start nafcillin 2 grams IV Q4H. Start fluconazole 800mg IV x 1 dose, then 400mg IV daily. Duration of treatment depends on the clinical picture, but likely 6-8 weeks of IV antibiotics. student services director to assist with discharge planning. Monitor renal and liver function and dose-adjust antibiotics. Avoid insertion of long-term IV access until blood cultures are negative x 48 hours. (2) Endocarditis Status: Acute Assessment and plan: Location: Tricuspid valve. Diagnosed January 2018 at [facility] per TTE. Causative organism: MSSA and C. dublienesis. Inadequately treated due to the patient signing out AMA from [facility]. Antibiotic recommendations as above. Qualifiers: Endocarditis type: infective Infective endocarditis organism: bacterial Chronicity: unspecified Qualified Code(s): I33.0 - Acute and subacute infective endocarditis (3) Candidemia Status: Acute Assessment and plan: Causative organism: C. dublieniensis. Blood cultures drawn 01/22/18 at [facility] were positive 1/2 sets. Repeat blood cultures were negative for candidemia. Contaminant vs. true infection. Treated with caspofungin x6 days at [facility], but no treatment since 01/29/18. Previous opthalmology exam negative for endopthalmitis. (4) Cavitary lesion of lung Status: Acute Assessment and plan: Likely septic emboli from bacteremia and endocarditis. CXR 03/06/18 showed improved but persistent bilateral thin-walled cavitary lesions concerning for septic emboli. Antibiotic recommendations as above. (5) Chest pain Status: Acute Assessment and plan: Likely secondary to cavitary lung lesions/endocarditis. Qualifiers: Chest pain type: precordial pain Qualified Code(s): R07.2 - Precordial pain (6) Headache Status: Acute Assessment and plan: Location: left frontal. Etiology unclear. New-onset since bacteremia. Denies blurred vision or floaters. Consider CT/MRI of the brain to evaluate for septic emboli. Qualifiers: Headache type: unspecified Headache chronicity pattern: episodic headache Intractability: not intractable Qualified Code(s): R51 - Headache (7) H/O intravenous drug use in remission Status: Acute Assessment and plan: Previous use of IV suboxone. Known Hep C positive. Check hepatitis B serologies and HIV. Infectious Disease HPI - Data of Consult Patient: new to practice Consult date: 03/07/18 Requesting Physician: Nathan Ross MD Primary Care Provider: Carol Garcia - Consult Narrative Reason for consult: Endocarditis History of present illness: Ms. Mccain is a 27 year old female with medical history of hepatitis C secondary to IV drug use currently in remission, pneumonia, MSSA bacteremia with tricuspid valve endocarditis diagnosed 01/22/18 that has not completed adequate treatment. The patient was admitted to the hospital 03/06/18 for chest pain, endocarditis. We are consulted 03/07/80. Hematocrit recommendations for endocarditis. Briefly, the patient a 27-year-old female with past medical history as stated above. The patient has a history of IV drug use with last use about 2 months ago. Apparently, she presented to the [facility] on 01/22 at which time she was 36 weeks and having contractions. She has spontaneous vaginal delivery, but developed sepsis post delivery. Blood cultures were drawn and she was started on meropenem and vancomycin and was transferred to [facility] where she was diagnosed with MSSA bacteremia, tricuspid valve endocarditis, bilateral pneumonia, and septic emboli to the lungs. She was also diagnosed with candidemia. She was evaluated by CTS, but did not require surgical intervention. Opthalmological exam was negative for endopthalmitis. She was discharged AGAINST MEDICAL ADVICE 01/29/18 after she was AWOL from the hospital unit that she was assigned to him there is evidence that she had been tampering with her IV. She has not been on any IV antibiotics since then. She recently checked herself into a drug rehabilitation program and the neuropsychology medical consultant there advised her to come to the emergency department for evaluation due to chest pain. Upon arrival, the patient was tachycardic, but was otherwise hemodynamically stable and afebrile. White blood cell count is normal. Kidney function is fine. Urinalysis was negative. Blood cultures were obtained 3 sets and are pending. She had a chest x-ray showed improved but persistent bilateral thinwall cavitary lesions concerning for septic emboli. She was started on vancomycin and cefepime and admitted to the hospital for f urther evaluation. Since admission, the patient has remained afebrile hemodynamically stable. Her white blood cell count remains normal. Currently, she is on Vanco and cefepime. We have been asked to evaluate and make further recommendations. During my exam today, the patient endorsed a history as stated above. She states she has been having some intermittent chills, but denies any fevers or r igors. Reports some left frontal headaches that have been ongoing since she was originally diagnosed with bacteremia. She denies any dizziness or blurred vision or floaters. She denies any congestion, earache, or sore throat. She reports diffuse chest pain that is constant and aching and is sometimes worse with cough or deep inspiration. She denies any cough or hemoptysis. She reports some intermittent shortness of breath. She reports some nausea, but denies vomiting or diarrhea. States her appetite has been good. She denies abdominal pain or urinary complaints or vaginal bleeding/discharge. She denies any oral thrush or open skin lesions. The patient recently checked herself into an inpatient drug rehabilitation facility. She was recently in the [facility] after she was arrested on a probation violation. She smokes about half pack cigarettes per day. She states she has been off illicit drugs for about 2 months and was clean for the majority of her . She is known to be hep C positive. Her hep B status is unknown. She denies any other known chronic infectious diseases. She denies recent travel outside the [facility]. CC: Nathan Ross MD Past Med Surg Social Fam HX - Past Medical History Attestation: Yes The following information was validated with the patient. Source: patient, old records reviewed, nursing notes reviewed Medical history: hepatitis, other Additional medical history: HEP C, DRUG USE , PNEUMONIA, endocarditis, IVDU, MSSA bacteremia, candidemia, septic emboli to the lungs Psychiatric history: anxiety, depression, panic disorder - Past Surgical History Surgical History: no surgical history - Social History Smoking Status: Current every day smoker Packs per day: 0.5 Smokeless Tobacco Status: No Alcohol use: none Drug use: none, marijuana, methamphetamine, IV Drug Use, other Occupational status: unemployed Current living situation: Home, With Family Activity Level: Independent ambulation Recent Out of Country Travel Within the Last 8 Weeks: No Exposure or Possible Exposure to Illness During Travel: No - Family History Father Hx Family Psychosocial Disorders: Yes (drug overdose) Infectious Disease-CN:Meds Buprenorphine HCl/Naloxone HCl [Suboxone 8 mg-2 mg Sl Film] 1 each SL TID 02/07/18 [History] Allergy/AdvReac Type Severity Reaction Status Date / Time No Known Allergies Allergy Verified 02/07/18 23:47 All systems: reviewed and no additional remarkable complaints except as stated Exam - Constitutional Vitals: Temp Pulse Resp BP Pulse Ox 99.0 F 93 16 113/71 99 03/07/18 07:04 03/07/18 07:04 03/07/18 07:04 03/07/18 07:04 03/07/18 07:04 General appearance: cooperative, no acute distress, thin - Head Head exam: Present: atraumatic, normal inspection, normocephalic - Eye Eye exam: Present: EOMI, normal appearance, PERRL Pupils: Present: normal accommodation Additional comments: No subconjunctival hemorrhage noted. - ENT ENT exam: Present: mucous membranes moist, normal oropharynx - Neck Neck exam: Present: normal inspection - Respiratory Respiratory exam: Present: CTAB. Absent: rales, respiratory distress, rhonchi, wheezes - Cardiovascular Cardiovascular exam: Present: RRR, +S1, +S2, systolic murmur - GI/Abdominal GI/Abdominal exam: Present: normal bowel sounds, soft. Absent: distended, tenderness - Extremities Exam Extremities exam: Present: normal inspection. Absent: joint swelling, pedal edema, tenderness - Back Exam Back exam: Present: normal inspection. Absent: paraspinal tenderness, vertebral tenderness - Neurological Exam Neurological exam: Present: alert, oriented X3, no focal deficits - Psychiatric Psychiatric exam: Present: normal affect, normal mood - Skin Skin exam: Present: dry, intact, normal color, warm Additional comments: No endocarditis stigmata noted. Unable to assess the toenail beds due to nail bulgarian. Infectious Disease CN: Results - Labs CBC & Chem 7: 03/07/18 04:20 03/07/18 04:20 Cultures: Cultures 03/06/18 12:15 Blood Culture - Preliminary Peripheral Venipuncture Culture is incubating and being continuously monitored for growth. Final report to follow. 03/06/18 12:15 Blood Culture - Preliminary Peripheral Venipuncture Culture is incubating and being continuously monitored for growth. Final report to follow. Serology: Serology 03/06/18 03/06/18 Range/Units 12:01 12:01 Urine Color Yellow (Yellow) Urine Clarity Clear (Clear) Urine pH 6.0 (5.0-8.0) pH Units Ur Specific [place] 1.007 L (1.010-1.025) Urine Protein Negative (Neg-Trace) mg/dL Urine Glucose (UA) Normal (Normal) mg/dL Urine Ketones Negative (Negative) mg/dL Urine Blood Negative (Negative) Urine Nitrite Negative (Negative) Urine Bilirubin Negative (Negative) Urine Urobilinogen Normal (Normal) mg/dL Ur Leukocyte Esterase Negative (Negative) Ur Culture Indicated? NO (NO) Urine Test Negative (Negative) Consult Discharge Plan - Plan Referrals: Carol Garcia CNP [Primary Care Provider] - 03/14/18 9:00 am (Please follow up as schedule...) - Attending Attestation I examined this patient and my medical decision-making was reviewed with the Resident Physician. I agree with the documented findings, disposition and treat ment plan as described except to the extent set forth below. This is an addendum to original report dictated by Theresa Hall CNP. Please refer to Theresa's note for full detail. Patient is a 27-year-old woman with a very sad history of IV drug use, hepatitis C, persistent MSSA bacteremia with endocarditis of the tricuspid valve diagnosed in January [facility] with septic emboli to the lungs who signed out AGAINST MEDICAL ADVICE because she delivered a baby and she tells me that they cut her bracelet and she could not go see him presented now for chest pain getting worse with sputum productive cough. Since admission patient had one SIRS criteria which is a tachycardia. Labs reviewed x-ray reviewed cultures pending. Physical exam negative for endocarditis stigmata. No conjunctival hemorrhage. No Janeway lesion or [place] nodes. I did not really appreciate a murmur. Patient was very emotional and crying when I was in the room and tells me that children services have her baby and it and give it to her sister the the month until she gets out. Assessment and plan: Endocarditis of tricuspid valve with MSSA bacteremia complicated with septic emboli to the lungs Recent candidemia with Lilo dublinieinsis susceptible to fluconazole treated for only like a week Chest pain likely secondary to septic emboli Hepatitis C IV drug use has been clean for 2 months Recommendations Patient needs to be treated for the endocarditis with methicillin for at least 6-8 weeks maybe longer. We will start empirically the fluconazole until the repeat blood cultures come back. If the patient is no longer candidemia by Saturday and the results are still negative I will stop the fluconazole. Monitor labs and for drug toxicity We will continue to follow
--- NOTE | 2018-03-07 11:46 | Internal Med Progress Note ---
Hospitalist Progress Note - Encounter Date of Encounter: 03/07/18 Time of Encounter: 11:44 - Subjective Interval History: Patient seen and examined this morning at bedside. Denies new complaint. Still with on and off chest pain worse with deep breathing. Some chills overnight. No overnight fevers noted. Denies any abdominal pain diarrhea or urinary complaints. Denies any weakness numbness or tingling or vision changes. - Exam Vitals: Temp Pulse Resp BP Pulse Ox 98.8 F 88 16 106/65 98 03/07/18 11:18 03/07/18 11:18 03/07/18 11:18 03/07/18 11:18 03/07/18 11:18 Exam: Constitutional: Vitals as noted. Conversant. No Apparent Distress. Respiratory : CTAB. No accessory muscle use, rales, Cardiovascular : RRR, +S1, +S2. Early soft diastolic murmur, no gallop, rubs. No chest wall tenderness GI/Abdominal : Soft, Non-tender, Non-distended, normal bowel sounds, soft, no peritoneal signs. no orgenomegaly or mass appreciated. no hernia. Musculoskeletal: no deformity noted. no edema or cyanosis. warm extremities, pulses palpable and symmetrical in UE/LE. no calf tenderness. Neurological: AO X3, CN II-XII grossly intact, grossly normal motor and sensory exam. Skin: Papular non-tender lesion located on both arms and legs. - Assessment and Plan (1) Endocarditis Current Visit: Yes Status: Acute (2) Cavitary lesion of lung Current Visit: Yes Status: Acute (3) Chest pain Current Visit: Yes Status: Acute (4) Methamphetamine use Current Visit: No Status: Acute (5) Anxiety Current Visit: Yes Status: Acute - Summary of Assessment and Plan Summary of Assessment and Plan: Endocarditis - h/o endocarditis not fully treated. Patient has stigmata of embolic phenomena with skin lesion as well as cavitary lung lesion. h/o MSSA bacteremia - Some [facility] records available. ECHO from [facility] with 1 cm long vegetation on TV with mild-mod TR on 01/23/18. Blood culture form 01/25/18 positive for Staph aureus pending C/S from [facility]. Also had Aretha bacteremia. Patien was getting Nafcillin. However left AMA and did not get further antiotics. - Report form ER doctor with history of MRSA at [facility]. Lee find that record. - EKG without any conduction pathology - c/w vancomycin and cefepime. - c/w IV fluids - Blood cultures collected in the ER. Will obtain fungal cultures given h/o aretha bacteremia. - f/u echocardiogram - Infectious disease consulted. Cavitary lesion of lung - Likely representing septic embolic phenomena from endocarditis - Continue empiric antibiotics Chest pain - Likely pleuritic pain from septic emboli in the lungs - Troponin 1 negative and EKG without ischemic changes Methamphetamine use - Discussed risk of continued use - Not currently on subutex Anxiety - she is on hydroxyzine at home - We will confirm with her pharmacy and start her on medication DVT ppx - sc heparin - Time Spent with Patient Total time spent is greater than 50% in coordination of care (as documented) at patient's floor/unit and/or counseling patient: Internal Medicine: Result - Labs CBC & Chem 7: 03/07/18 04:20 03/07/18 04:20 Labs: Short CBC 03/06/18 03/07/18 Range/Units 12:15 04:20 WBC 7.6 8.8 (4.3-11.1) K/mcL Hgb 12.5 11.5 (11.5-15.4) g/dL Hct 39.1 36.8 (35.3-44.9) % Plt Count 260 234 (140-400) K/mcL Neutrophils # 4.8 5.5 (1.6-8.9) K/mcL BMP 03/06/18 03/07/18 12:15 04:20 Sodium 139 137 Potassium 4.0 4.5 Chloride 106 109 H Carbon Dioxide 24 23 BUN 11 14 Creatinine 0.49 L 0.56 L Glucose 92 85 Calcium 9.6 9.5 Cardiac Enzymes 03/06/18 Range/Units 12:15 Troponin I < 0.03 (< 0.04) ng/mL Urine 03/06/18 Range/Units 12:01 Urine Color Yellow (Yellow) Urine Clarity Clear (Clear) Urine pH 6.0 (5.0-8.0) pH Units Ur Specific [place] 1.007 L (1.010-1.025) Urine Protein Negative (Neg-Trace) mg/dL Urine Glucose (UA) Normal (Normal) mg/dL - ABG Interpretation ABG results: PT/INR, D-dimer PT 10.1 Seconds (9.4-12.1) 03/06/18 12:15 - Impressions Impressions Chest X-Ray 03/06/18 11:37 IMPRESSION: Improving but persistent bilateral thin wall cavitary lesions concerning for septic emboli. Correlate CT imaging as warranted. D/ / 03/06/2018 13:50:33 Rich Michel MD / patricia Interpreting Provider: Rich Michel MD Consult Discharge Plan - Plan Referrals: Carol Garcia CNP [Primary Care Provider] - 03/14/18 9:00 am (Please follow up as schedule...) (1) Endocarditis Qualifiers: Endocarditis type: infective Infective endocarditis organism: bacterial Chronicity: unspecified Qualified Code(s): I33.0 - Acute and subacute infective endocarditis (3) Chest pain Qualifiers: Chest pain type: precordial pain Qualified Code(s): R07.2 - Precordial pain
[2018-03-07] MEDS ORDERED: Nafcillin 2,000 MG in D5% in Water (Mini-Bag+) 100 ML IVPB SCH (14:00)
[2018-03-07] MEDS: *HR* Heparin 5,000 UNIT/ML VIAL SQ SCH ×2 (14:31→21:03)
[2018-03-07] MEDS: Nafcillin 2,000 MG in 0.9 % Sodium Chloride Mini Bag 100 ML IVPB SCH ×2 (15:02→21:20)
[2018-03-07] MEDS: Fluconazole 400 MG/200 ML 400 MG/200 ML BAG IVPB SCH ×2 (15:04→17:39)
[2018-03-07 15:58] LABS: HIV-1&2 Antibody & p24 Ag Nonreactive (Nonreactive); Hepatitis B Surface Antigen Nonreactive (Nonreactive)
[2018-03-07 16:10] LABS: Hepatitis B Surface Antibody 220.27 mIU/mL
[2018-03-07] MEDS ORDERED: Metoclopramide 10 MG/2 ML VIAL IVP ONE (20:39)
[2018-03-07] MEDS: Nicotine 7 MG PATCH.TD24 TD SCH (21:21)
[2018-03-08] MEDS: Nafcillin 2,000 MG in 0.9 % Sodium Chloride Mini Bag 100 ML IVPB SCH ×7 (00:03→21:22)
[2018-03-08] MEDS: Ibuprofen 400 MG TABLET PO PRN (04:09)
[2018-03-08] MEDS: Acetaminophen 325 MG TABLET PO PRN (04:09)
[2018-03-08] MEDS: *HR* Heparin 5,000 UNIT/ML VIAL SQ SCH ×3 (05:23→21:22)
[2018-03-08] MEDS: Fluconazole 400 MG/200 ML 400 MG/200 ML BAG IVPB SCH (08:16)
[2018-03-08] MEDS: Ringers Solution, Lactated 1,000 ML IVC SCH (08:16)
[2018-03-08] MEDS ORDERED: Ketorolac 30 MG/ML VIAL IVP ONE (09:49)
--- NOTE | 2018-03-08 12:13 | Internal Med Progress Note ---
Hospitalist Progress Note - Encounter Date of Encounter: 03/08/18 Time of Encounter: 12:10 - Subjective Interval History: Patient seen and examined this morning at bedside. Denies new complaint. Has on and off chest pain worse with deep breathing. No overnight fevers noted. no abdominal pain diarrhea or urinary complaints. Denies any weakness numbness or tingling or vision changes. Has on and off Left sided headache. - Exam Vitals: Temp Pulse Resp BP Pulse Ox 97.5 F L 72 16 117/67 99 03/08/18 08:14 03/08/18 08:14 03/08/18 08:14 03/08/18 08:14 03/08/18 08:24 Exam: Constitutional: Vitals as noted. Conversant. No Apparent Distress. Respiratory : CTAB. No accessory muscle use, rales, Cardiovascular : RRR, +S1, +S2. Early soft diastolic murmur, no gallop, rubs. No chest wall tenderness GI/Abdominal : Soft, Non-tender, Non-distended, normal bowel sounds, soft, no peritoneal signs. no orgenomegaly or mass appreciated. no hernia. Musculoskeletal: no deformity noted. no edema or cyanosis. warm extremities, pulses palpable and symmetrical in UE/LE. no calf tenderness. Neurological: AO X3, CN II-XII grossly intact, grossly normal motor and sensory exam. Skin: Papular non-tender lesion located on both arms and legs. - Assessment and Plan (1) Endocarditis Current Visit: Yes Status: Acute (2) Cavitary lesion of lung Current Visit: Yes Status: Acute (3) Chest pain Current Visit: Yes Status: Acute (4) Methamphetamine use Current Visit: No Status: Acute (5) Anxiety Current Visit: Yes Status: Acute - Summary of Assessment and Plan Summary of Assessment and Plan: Endocarditis - h/o endocarditis not fully treated. Patient has stigmata of embolic phenomena with skin lesion as well as cavitary lung lesion. h/o MSSA bacteremia, aretha bacteremia. - Antbiotics deescalated to Nafcillin based on [facility] records per ID. Also started on fluconazole. Was treated with caspofungin for 6 days - EKG without any conduction pathology - f/u Blood culture and fungal culture. HIV and Hepatitis B negative. has h/o Hep C. - echocardiogram with TV poserior leaflet v egetation 5x8 mm. - Infectious disease following. Headache - started after last admission. No focal deficits - concern for embolic phenomenon. Will get CT head Cavitary lesion of lung - Likely representing septic embolic phenomena from endocarditis - Continue empiric antibiotics Chest pain - Likely pleuritic pain from septic emboli in the lungs - Troponin 1 negative and EKG without ischemic changes Methamphetamine use - Discussed risk of continued use - Not currently on subutex Anxiety - she is on hydroxyzine at home - We will confirm with her pharmacy and start her on medication DVT ppx - sc heparin - Time Spent with Patient Total time spent is greater than 50% in coordination of care (as documented) at patient's floor/unit and/or counseling patient: Internal Medicine: Result - Labs CBC & Chem 7: 03/07/18 04:20 03/07/18 04:20 - ABG Interpretation ABG results: PT/INR, D-dimer PT 10.1 Seconds (9.4-12.1) 03/06/18 12:15 - Impressions Impressions Chest X-Ray 03/06/18 11:37 IMPRESSION: Improving but persistent bilateral thin wall cavitary lesions concerning for septic emboli. Correlate CT imaging as warranted. D/ / 03/06/2018 13:50:33 Rich Michel MD / patricia Interpreting Provider: Rich Michel MD Echocardiogram 03/07/18 11:11 Impressions: LVEF 60%. Normal LV chamber size, wall thickness and function. Normal right ventricular structure and function. Thickened tricuspid posterior leaflet with a [id number] non-mobile mass, consistent with vegetation. Mild tricuspid regurgitation. No pulmonary hypertension. Left Ventricular Wall Motion: Rest Echo Findings All wall segments showed normal motion. Findings: Study Quality * Technically adequate exam. ECG Findings * Normal sinus rhythm. Left Ventricle * LVEF 60%. * Normal LV chamber size, wall thickness and function. * Normal left ventricular diastolic function. Right Ventricle * Normal right ventricular structure and function. Left Atrium * Normal left atrial size. Right Atrium * Normal right atrial size. Interatrial Septum * Interatrial septum not well evaluated. * No evidence of PFO by color Doppler. Aortic Valve * Trileaflet aortic valve. * No aortic stenosis. * No aortic regurgitation. Mitral Valve * Normal mitral valve structure. * No mitral stenosis. * Trace mitral regurgitation. Tricuspid Valve * Thickened posterior leaflet with a [id number] non-mobile heteroechoic mass attached to posterior leaflet. * No tricuspid stenosis. * Mild tricuspid regurgitation. * Estimated RVSP is 22 mmHg. * Estimated RA pressure is 3 mmHg. * No pulmonary hypertension. Pulmonic Valve * Pulmonic valve is not well visualized. * No pulmonic stenosis. * Trace pulmonic regurgitation. Aorta * Normally sized aortic root. Pericardium * The pericardium appears normal. IVC * Normal IVC dimensions and inspiratory collapse. Head CT 03/08/18 09:02 IMPRESSION: No acute intracranial abnormality. Paranasal sinus mucosal thickening, greatest of the left maxillary sinus. D/ / Raquel Medrano Cha, MD / Raquel Medrano Cha, MD Interpreting Provider: Raquel Medrano Cha, MD Consult Discharge Plan - Plan Referrals: Carol Garcia CNP [Primary Care Provider] - 03/14/18 9:00 am (Please follow up as schedule...) (1) Endocarditis Qualifiers: Endocarditis type: infective Infective endocarditis organism: bacterial Chronicity: unspecified Qualified Code(s): I33.0 - Acute and subacute infective endocarditis (3) Chest pain Qualifiers: Chest pain type: precordial pain Qualified Code(s): R07.2 - Precordial pain
[2018-03-08] MEDS: Nicotine 7 MG PATCH.TD24 TD SCH (21:22)
[2018-03-08] MEDS ORDERED: traMADol 50 MG TABLET PO ONE (22:03)
[2018-03-08] MEDS ORDERED: Melatonin 3 MG TABLET PO ONE (22:03)
[2018-03-09] MEDS: Ibuprofen 400 MG TABLET PO PRN ×2 (00:03→20:43)
[2018-03-09] MEDS: Nafcillin 2,000 MG in 0.9 % Sodium Chloride Mini Bag 100 ML IVPB SCH ×6 (02:17→21:37)
[2018-03-09] MEDS: *HR* Heparin 5,000 UNIT/ML VIAL SQ SCH ×3 (05:38→19:35)
[2018-03-09 06:35] LABS: Basophils # 0.1 K/mcL (0.0-0.2); Basophils % 0.7 %; Eosinophils # 0.5 K/mcL (0.0-0.6); Eosinophils % 5.6 %; Hematocrit 35.2 % (35.3-44.9); Hemoglobin 11.4 g/dL (11.5-15.4); Immature Granulocytes % 1.1 % (0-4); Lymphocytes # 3.2 K/mcL (0.6-4.6); Lymphocytes % 36.3 %; Mean Corpuscular HGB Conc 32.4 g/dL (31.6-35.5); Mean Corpuscular Hemoglobin 27.7 pg (28.0-33.3); Mean Corpuscular Volume 85.6 fL (83.0-100.0); Monocytes # 0.6 K/mcL (0.0-1.3); Monocytes % 6.5 %; Neutrophils # 4.4 K/mcL (1.6-8.9); Platelet Count 230 K/mcL (140-400); Red Blood Count 4.11 M/mcL (3.82-4.97); Red Cell Distribution Width 16.6 % (11.5-14.5); Segmented Neutrophils % 49.8 %
[2018-03-09 06:57] LABS: BUN/Creatinine Ratio 26 (6-26); Blood Urea Nitrogen 20 mg/dL (6-20); Carbon Dioxide 25 mEq/L (23-29); Chloride 103 mEq/L (98-107); Glucose 110 mg/dL (70-105); Osmolality,Calculated 287 (280-300); Potassium 4.4 mEq/L (3.5-5.1); Sodium 137 mEq/L (136-145); eGFR For Non-African Americans > 60 (> 60)
[2018-03-09] MEDS: Fluconazole 400 MG/200 ML 400 MG/200 ML BAG IVPB SCH (09:51)
[2018-03-09] MEDS: Acetaminophen 325 MG TABLET PO PRN ×2 (10:00→17:33)
--- NOTE | 2018-03-09 12:33 | Internal Med Progress Note ---
Hospitalist Progress Note - Encounter Date of Encounter: 03/09/18 Time of Encounter: 12:30 - Subjective Interval History: Patient seen and examined this morning at bedside. Denies new complaint. Has on and off chest pain worse with deep breathing and on/off headache. No overnight fevers noted. Denies any weakness numbness or tingling or vision changes. - Exam Vitals: Temp Pulse Resp BP Pulse Ox 98.0 F 88 16 110/74 97 03/09/18 11:32 03/09/18 11:32 03/09/18 11:32 03/09/18 11:32 03/09/18 11:32 Exam: Constitutional: Vitals as noted. Conversant. No Apparent Distress. Respiratory : CTAB. No accessory muscle use, rales, Cardiovascular : RRR, +S1, +S2. Early soft diastolic murmur, no gallop, rubs. No chest wall tenderness GI/Abdominal : Soft, Non-tender, Non-distended, normal bowel sounds, soft, no peritoneal signs. no orgenomegaly or mass appreciated. no hernia. Musculoskeletal: no deformity noted. no edema or cyanosis. warm extremities, pulses palpable and symmetrical in UE/LE. no calf tenderness. Neurological: AO X3, CN II-XII grossly intact, grossly normal motor and sensory exam. Skin: Papular non-tender lesion located on both arms and legs. - Assessment and Plan (1) Endocarditis Current Visit: Yes Status: Acute (2) Cavitary lesion of lung Current Visit: Yes Status: Acute (3) Chest pain Current Visit: Yes Status: Acute (4) Methamphetamine use Current Visit: No Status: Acute (5) Anxiety Current Visit: Yes Status: Acute - Summary of Assessment and Plan Summary of Assessment and Plan: Endocarditis - h/o endocarditis not fully treated. Patient has stigmata of embolic phenomena with skin lesion as well as cavitary lung lesion. h/o MSSA bacteremia, aretha bacteremia. - Antbiotics deescalated to Nafcillin based on [facility] records per ID. Also started on fluconazole. Was treated with caspofungin for 6 days - EKG without any conduction pathology - f/u Blood culture and fungal culture. HIV and Hepatitis B negative. has h/o Hep C. - echocardiogram with TV poserior leaflet v egetation 5x8 mm. - Blood cultures negative since 02/22/18. Will obtain nursing home IV access for antibiotics. Likely needs 6-8 weeks of antibiotics. Social service following. - Infectious disease following. Headache - started after last admission. No focal deficits - concern for embolic phenomenon. CT head without intracranial abnormality. Cavitary lesion of lung - Likely representing septic embolic phenomena from endocarditis - Continue empiric antibiotics Chest pain - Likely pleuritic pain from septic emboli in the lungs - Troponin 1 negative and EKG without ischemic changes Methamphetamine use - Discussed risk of continued use - Not currently on subutex Anxiety - she is on hydroxyzine at home - We will confirm with her pharmacy and start her on medication DVT ppx - sc heparin - Time Spent with Patient Total time spent is greater than 50% in coordination of care (as documented) at patient's floor/unit and/or counseling patient: Internal Medicine: Result - Labs CBC & Chem 7: 03/09/18 06:03 03/09/18 06:03 Labs: Short CBC 03/09/18 Range/Units 06:03 WBC 8.8 (4.3-11.1) K/mcL Hgb 11.4 L (11.5-15.4) g/dL Hct 35.2 L (35.3-44.9) % Plt Count 230 (140-400) K/mcL Neutrophils # 4.4 (1.6-8.9) K/mcL BMP 03/09/18 06:03 Sodium 137 Potassium 4.4 Chloride 103 Carbon Dioxide 25 BUN 20 Creatinine 0.76 Glucose 110 H Calcium 10.0 - ABG Interpretation ABG results: PT/INR, D-dimer PT 10.1 Seconds (9.4-12.1) 03/06/18 12:15 Consult Discharge Plan - Plan Referrals: Carol Garcia, SIGNALING DESIGN ENGINEER [Primary Care Provider] - 03/14/18 9:00 am (Please follow up as schedule...) (1) Endocarditis Qualifiers: Endocarditis type: infective Infective endocarditis organism: bacterial Chronicity: unspecified Qualified Code(s): I33.0 - Acute and subacute infective endocarditis (3) Chest pain Qualifiers: Chest pain type: precordial pain Qualified Code(s): R07.2 - Precordial pain
--- NOTE | 2018-03-09 15:48 | Electrocardiograph Report ---
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
[2018-03-09] MEDS: Nicotine 7 MG PATCH.TD24 TD SCH (20:43)
[2018-03-10] MEDS: Nafcillin 2,000 MG in 0.9 % Sodium Chloride Mini Bag 100 ML IVPB SCH ×6 (02:20→22:27)
[2018-03-10] MEDS: *HR* Heparin 5,000 UNIT/ML VIAL SQ SCH ×3 (05:43→22:01)
--- NOTE | 2018-03-10 09:55 | Infectious Disease Progress No ---
Date of Encounter: 03/10/18 Time of Encounter: 09:52 - Assessment and Plan (1) MSSA bacteremia Current Visit: Yes Status: Acute Previous cultures positive for MSSA. 01/22/18 MSSA 2/2 ([facility]) 01/22/18 C. dublinienesis 1/2 ([facility]) 01/23/18 MSSA 2/2 01/24/18 MSSA 2/2 01/25/18 MSSA 2/2 01/26/18 negative x 2 01/27/18 MSSA 2/2 01/28/18 negative x 2 Likely secondary to IV drug use. Complicated due to septic emboli in the lungs and endocarditis. Inadequately treated due to the patient leaving [facility] AMA. Not treated since 01/29/18. Blood cultures drawn on 03/06/18 are negative 2 sets. Repeat cultures drawn 03/08/18 her 2 sets. No sepsis criteria at this time. Currently on nafcillin. Recommendations: Await repeat blood cultures to finalize. Continue nafcillin 2 grams IV Q4H. Discontinue fluconazole since repeat blood cultures are negative for L[place]. Duration of treatment depends on the clinical picture, but likely 6-8 weeks of IV antibiotics. environmental services tech to assist with discharge planning. Monitor renal and liver function and dose-adjust antibiotics. Consults vascular access team for midline placement prior to discharge and once discharge plans have been finalized. (2) Endocarditis Current Visit: Yes Status: Acute Location: Tricuspid valve. Diagnosed January 2018 at [facility] per TTE. Causative organism: MSSA and C. dublienesis. Inadequately treated due to the patient signing out AMA from [facility]. TTE completed 03/07/18 showed an EF of 60% with a thickened tricuspid posterior leaflet with a 5 mm x 8 mm nonmobile mass, consistent with vegetation. There is mild tricuspid regurgitation. Antibiotic recommendations as above. Qualifiers: Endocarditis type: infective Infective endocarditis organism: bacterial C hronicity: unspecified Qualified Code(s): I33.0 - Acute and subacute infective endocarditis (3) Candidemia Current Visit: Yes Status: Acute Causative organism: C. dublieniensis. Blood cultures drawn 01/22/18 at [facility] were positive 1/2 sets. Repeat blood cultures were negative for candidemia. Contaminant vs. true infection. Treated with caspofungin x6 days at [facility], but no treatment since 01/29/18. Previous opthalmology exam negative for endopthalmitis. Repeat cultures are negative for candidemia. Currently on fluconazole. (4) Cavitary lesion of lung Current Visit: Yes Status: Acute Likely septic emboli from bacteremia and endocarditis. CXR 03/06/18 showed improved but persistent bilateral thin-walled cavitary lesio ns concerning for septic emboli. Antibiotic recommendations as above. (5) Chest pain Current Visit: Yes Status: Acute Likely secondary to cavitary lung lesions/endocarditis. A management per the primary team. Qualifiers: Chest pain type: precordial pain Qualified Code(s): R07.2 - Precordial pain (6) Headache Current Visit: Yes Status: Acute Location: left frontal. CT of the head showed pain or nasal sinus mucosal thickening, worse in the left maxillary sinus which could be contributing to the patient's headache. New-onset since bacteremia. Denies blurred vision or floaters. Qualifiers: Headache type: unspecified Headache chronicity pattern: episodic headache Intractability: not intractable Qualified Code(s): R51 - Headache (7) H/O intravenous drug use in remission Current Visit: Yes Status: Acute Previous use of IV suboxone. Known Hep C positive. HIV nonreactive. Hepatitis B serologies show immunity - Subjective Interval history: Patient seen and examined. No acute events noted overnight. Patient states overall she feels a little bit better. Continues to complain of some intermittent left-sided chest pain that is worse with cough or deep inspiration. She continues to complain of a left frontal headache without visual changes. She denies any fevers or chills or rigors. She denies any nausea or vomiting or diarrhea. She does report 3-4 loose stools per day, but states they are not mucousy or watery or foul-smelling. She denies abdominal pain or urinary complaints. She states her appetite is good. She denies any oral thrush or any skin lesions. Infect Dis PN-Objective Data - Labs CBC & Chem 7: 03/09/18 06:03 03/09/18 06:03 Cultures: Cultures 03/08/18 10:40 Blood Culture - Preliminary Peripheral Venipuncture Culture is incubating and being continuously monitored for growth. Final report to follow. 03/08/18 10:46 Blood Culture - Preliminary Peripheral Venipuncture Culture is incubating and being continuously monitored for growth. Final report to follow. 03/06/18 12:15 Blood Culture - Preliminary Peripheral Venipuncture Culture is incubating and being continuously monitored for growth. Final report to follow. 03/06/18 12:15 Blood Culture - Preliminary Peripheral Venipuncture Culture is incubating and being continuously monitored for growth. Final report to follow. Serology 03/07/18 03/06/18 03/06/18 Range/Units 14:41 12:01 12:01 Urine Color Yellow (Yellow) Urine Clarity Clear (Clear) Urine pH 6.0 (5.0-8.0) pH Units Ur Specific [place] 1.007 L (1.010-1.025) Urine Protein Negative (Neg-Trace) mg/dL Urine Glucose (UA) Normal (Normal) mg/dL Urine Ketones Negative (Negative) mg/dL Urine Blood Negative (Negative) Urine Nitrite Negative (Negative) Urine Bilirubin Negative (Negative) Urine Urobilinogen Normal (Normal) mg/dL Ur Leukocyte Esterase Negative (Negative) Ur Culture Indicated? NO (NO) Urine Test Negative (Negative) Hep Bs Antigen Nonreactive (Nonreactive) Hep Bs Antibody 220.27 mIU/mL HIV Ag/Ab Combo Qual Nonreactive (Nonreactive) Exam - Constitutional Vitals: Temp Pulse Resp BP Pulse Ox 97.6 F 84 16 102/62 98 03/10/18 06:56 03/10/18 06:56 03/10/18 06:56 03/10/18 06:56 03/10/18 06:56 General appearance: average body habitus, cooperative, no acute distress - Head Head exam: Present: atraumatic, normal inspection, normocephalic - Eye Eye exam: Present: EOMI, normal appearance, PERRL Pupils: Present: normal accommodation Additional comments: No subconjunctival hemorrhage noted. - ENT ENT exam: Present: mucous membranes moist - Neck Neck exam: Present: normal inspection - Respiratory Respiratory exam: Present: CTAB. Absent: rales, respiratory distress, rhonchi, wheezes - Cardiovascular Cardiovascular exam: Present: RRR, +S1, +S2 - GI/Abdominal GI/Abdominal exam: Present: normal bowel sounds, soft. Absent: distended, tenderness - Extremities Exam Extremities exam: Present: normal inspection. Absent: joint swelling, pedal edema, tenderness - Neurological Exam Neurological exam: Present: alert, oriented X3, no focal deficits - Psychiatric Psychiatric exam: Present: normal affect, normal mood - Skin Skin exam: Present: dry, intact, normal color, warm Additional comments: No endocarditis stigmata noted. Consult Discharge Plan - Plan Referrals: Carol Garcia CNP [Primary Care Provider] - 03/14/18 9:00 am (Please follow up as schedule...) Prescriptions: RX: Nafcillin 2,000 mg IVPB Q4HR 7 Days #42 vial - Attending Attestation I examined this patient and my medical decision-making was reviewed with the Resident Physician. I agree with the documented findings, disposition and t reatment plan as described except to the extent set forth below.
[2018-03-10] MEDS: Fluconazole 400 MG/200 ML 400 MG/200 ML BAG IVPB SCH (09:59)
[2018-03-10 10:18] LABS: Alanine Aminotransferase 112 Units/L (7-52); Albumin 4.3 g/dL (3.5-5.7); Albumin/Globulin Ratio 1.4 (1.1-2.2); Alkaline Phosphatase 84 Units/L (34-104); Aspartate Amino Transferase 72 Units/L (13-39); Bilirubin,Direct 0.1 mg/dL (0.0-0.2); Bilirubin,Indirect 0.2 mg/dL (0.0-1.2); Bilirubin,Total 0.3 mg/dL (0.3-1.0); Globulin 3.1 g/dL (2.4-3.5); Total Protein 7.4 g/dL (6.4-8.9)
--- NOTE | 2018-03-10 12:47 | Internal Med Progress Note ---
Hospitalist Progress Note - Encounter Date of Encounter: 03/10/18 Time of Encounter: 12:47 - Subjective Interval History: Patient seen and examined this morning at bedside. Has on and off chest pain worse with deep breathing. Denies new complaint. - Exam Vitals: Temp Pulse Resp BP Pulse Ox 98.6 F 102 16 107/71 97 03/10/18 11:10 03/10/18 11:10 03/10/18 11:10 03/10/18 11:10 03/10/18 11:10 Exam: Constitutional: Vitals as noted. Conversant. No Apparent Distress. Respiratory : CTAB. No accessory muscle use, rales, Cardiovascular : RRR, +S1, +S2. Early soft murmur, no gallop, rubs. No chest wall tenderness GI/Abdominal : Soft, Non-tender, Non-distended, normal bowel sounds, soft, no peritoneal signs. no orgenomegaly or mass appreciated. no hernia. Musculoskeletal: no deformity noted. no edema or cyanosis. warm extremities, pulses palpable and symmetrical in UE/LE. no calf tenderness. Neurological: AO X3, CN II-XII grossly intact, grossly normal motor and sensory exam. Skin: Papular non-tender lesion located on both arms and legs. - Assessment and Plan (1) Endocarditis Current Visit: Yes Status: Acute (2) Cavitary lesion of lung Current Visit: Yes Status: Acute (3) Chest pain Current Visit: Yes Status: Acute (4) Methamphetamine use Current Visit: No Status: Acute (5) Anxiety Current Visit: Yes Status: Acute - Summary of Assessment and Plan Summary of Assessment and Plan: Endocarditis - h/o endocarditis not fully treated. Patient has stigmata of embolic phenomena with skin lesion as well as cavitary lung lesion. h/o MSSA bacteremia, aretha bacteremia. Did not have endopthalmitis. - Antbiotics deescalated to Nafcillin based on [facility] records per ID. Was treated with caspofungin for 6 days at [facility]. Fluconazole discontinued given no fungal growth on cultures. - EKG without any conduction pathology - Blood culture and fungal culture NGTD. HIV negative. Hep B immunity. Has h/o Hep C. - echocardiogram with TV posterior leaflet vegetation 5x8 mm. 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 Likely needs 6-8 weeks of antibiotics. Social service following. Patient waiting precert given she needs to go to SNF as she has h/o IVDU. - Infectious disease following. Headache - started after last admission. No focal deficits - concern for embolic phenomenon. CT head without intracranial abnormality. - prn acetaminophen Cavitary lesion of lung - Likely representing septic embolic phenomena from endocarditis - Continue antibiotics as above Chest pain - Likely pleuritic pain from septic emboli in the lungs - Troponin 1 negative and EKG without ischemic changes Methamphetamine use - Discussed risk of continued use - Not currently on subutex Anxiety - she is on hydroxyzine at home - We will confirm with her pharmacy and start her on medication DVT ppx - sc heparin - Time Spent with Patient Total time spent is greater than 50% in coordination of care (as documented) at patient's floor/unit and/or counseling patient: Internal Medicine: Result - Labs CBC & Chem 7: 03/09/18 06:03 03/09/18 06:03 Labs: BMP 03/09/18 06:03 Sodium 137 Potassium 4.4 Chloride 103 Carbon Dioxide 25 BUN 20 Creatinine 0.76 Glucose 110 H Calcium 10.0 Liver Function 03/09/18 Range/Units 06:03 Total Bilirubin 0.3 (0.3-1.0) mg/dL Direct Bilirubin 0.1 (0.0-0.2) mg/dL AST 72 H (13-39) Units/L ALT 112 H (7-52) Units/L Alkaline Phosphatase 84 (34-104) Units/L Albumin 4.3 (3.5-5.7) g/dL - ABG Interpretation ABG results: PT/INR, D-dimer PT 10.1 Seconds (9.4-12.1) 03/06/18 12:15 Consult Discharge Plan - Plan Referrals: Carol Garcia CNP [Primary Care Provider] - 03/14/18 9:00 am (Please follow up as schedule...) Prescriptions: Nafcillin 2,000 mg IVPB Q4HR 7 Days #42 vial (1) Endocarditis Qualifiers: Endocarditis type: infective Infective endocarditis organism: bacterial Chronicity: unspecified Qualified Code(s): I33.0 - Acute and subacute infective endocarditis (3) Chest pain Qualifiers: Chest pain type: precordial pain Qualified Code(s): R07.2 - Precordial pain
[2018-03-10] MEDS: Nicotine 7 MG PATCH.TD24 TD SCH (22:27)
[2018-03-11] MEDS: Nafcillin 2,000 MG in 0.9 % Sodium Chloride Mini Bag 100 ML IVPB SCH ×3 (01:13→10:31)
[2018-03-11] MEDS: *HR* Heparin 5,000 UNIT/ML VIAL SQ SCH (06:13)
--- NOTE | 2018-03-11 07:42 | Internal Med Progress Note ---
Hospitalist Progress Note - Encounter Date of Encounter: 03/11/18 Time of Encounter: 14:00 - Exam Vitals: Temp Pulse Resp BP Pulse Ox 98.5 F 84 15 114/67 100 03/10/18 23:46 03/10/18 23:46 03/10/18 23:46 03/10/18 23:46 03/11/18 07:34 Exam: Constitutional: Vitals as noted. Conversant. No Apparent Distress. Respiratory : CTAB. No accessory muscle use, rales, Cardiovascular : RRR, +S1, +S2. Early soft murmur, no gallop, rubs. No chest wall tenderness GI/Abdominal : Soft, Non-tender, Non-distended, normal bowel sounds, soft, no peritoneal signs. no orgenomegaly or mass appreciated. no hernia. Musculoskeletal: no deformity noted. no edema or cyanosis. warm extremities, pulses palpable and symmetrical in UE/LE. no calf tenderness. Neurological: AO X3, CN II-XII grossly intact, grossly normal motor and sensory exam. Skin: Papular non-tender lesion located on both arms and legs. - Assessment and Plan (1) MSSA bacteremia Current Visit: Yes Status: Acute Assessment and Plan: Likely secondary to intravenous drug use. continue nafcillin Iv q 4 ID following. Plan for 6-8 weeks of antibiotics. Plan for discharge once repeat cultures finalize (2) Endocarditis Current Visit: Yes Status: Acute Assessment and Plan: - Patient with history of endocarditis not fully treated. Has tricuspid valve endocarditis diagnosed per TTE at [facility] TTE done her showed thickened tricuspid posterior leaflet with non mobile mass consistent with vegetation Continue IV antibiotics (3) Methamphetamine use Current Visit: Yes Status: Acute Assessment and Plan: - Patient on Subutex - We will come form with pharmacy and start her after. (4) Chest pain Current Visit: Yes Status: Acute Assessment and Plan: - Likely pleuritic pain from septic emboli in the lungs - Troponin 1 negative and EKG without ischemic changes (5) Cavitary lesion of lung Current Visit: Yes Status: Acute Assessment and Plan: - Likely representing embolic phenomena from endocarditis - Continue nafcillin (6) Anxiety Current Visit: Yes Status: Acute Assessment and Plan: - Patient mentions she is on hydroxyzine - We will confirm with her pharmacy and start her on medication (7) Candidemia Current Visit: Yes Status: Acute Assessment and Plan: Causative organism: C. dublieniensis. Blood cultures drawn 01/22/18 at [facility] were positive 1/2 sets. Repeat blood cultures were negative for candidemia. Contaminant vs. true infection. Treated with caspofungin x6 days at [facility], but no treatment since 01/29/18. Previous opthalmology exam negative for endopthalmitis. Repeat cultures are negative for candidemia. DVT Prophylaxis: heparin sc - Time Spent with Patient Total time spent is greater than 50% in coordination of care (as documented) at patient's floor/unit and/or counseling patient: Internal Medicine: Result - Labs CBC & Chem 7: 03/09/18 06:03 03/09/18 06:03 Labs: BMP 03/09/18 06:03 Sodium 137 Potassium 4.4 Chloride 103 Carbon Dioxide 25 BUN 20 Creatinine 0.76 Glucose 110 H Calcium 10.0 Liver Function 03/09/18 Range/Units 06:03 Total Bilirubin 0.3 (0.3-1.0) mg/dL Direct Bilirubin 0.1 (0.0-0.2) mg/dL AST 72 H (13-39) Units/L ALT 112 H (7-52) Units/L Alkaline Phosphatase 84 (34-104) Units/L Albumin 4.3 (3.5-5.7) g/dL - ABG Interpretation ABG results: PT/INR, D-dimer PT 10.1 Seconds (9.4-12.1) 03/06/18 12:15 Consult Discharge Plan - Plan Referrals: Theresa Hall CNP [Advanced Practice Nurse] - 04/02/18 1:45 pm Carol Garcia CNP [Primary Care Provider] - 03/14/18 9:00 am (Please follow up as schedule...) Prescriptions: Nafcillin 2,000 mg IVPB Q4HR 7 Days #42 vial (2) Endocarditis Qualifiers: Endocarditis type: infective Infective endocarditis organism: bacterial Chronicity: unspecified Qualified Code(s): I33.0 - Acute and subacute infective endocarditis (4) Chest pain Qualifiers: Chest pain type: precordial pain Qualified Code(s): R07.2 - Precordial pain
--- NOTE | 2018-03-11 09:20 | Infectious Disease Progress No ---
Date of Encounter: 03/11/18 Time of Encounter: 09:14 - Assessment and Plan (1) MSSA bacteremia Status: Acute Previous cultures positive for MSSA. 01/22/18 MSSA 2/2 ([facility]) 01/22/18 C. dublinienesis 1/ ([facility]) 01/23/18 MSSA 2/2 01/24/18 MSSA 2/2 01/25/18 MSSA 2/2 01/26/18 negative x 2 01/27/18 MSSA 2/2 01/28/18 negative x 2 Likely secondary to IV drug use. Complicated due to septic emboli in the lungs and endocarditis. Inadequately treated due to the patient leaving [facility] AMA. Not treated since 01/29/18. Blood cultures drawn on 03/06/18 are no growth to date 2 sets. Repeat cultures drawn 03/08/18 no growth to date2 sets. No sepsis criteria at this time. Currently on nafcillin. Recommendations: Await repeat blood cultures to finalize. Continue nafcillin 2 grams IV Q4H. Duration of treatment depends on the clinical picture, but likely 6-8 weeks of IV antibiotics. Can transition to 12 grams Q24 hours via continuous IV infusion if this method of dosing is easier for the facility where the patient will be staying. office services clerk to assist with discharge planning. Monitor renal and dose-adjust antibiotics. Consult vascular access team for midline placement prior to discharge and once discharge plans have been finalized. Will need weekly CBC, BUN/creatinine. We will need weekly IV care per protocol. Follow up with ID 04/02/17 at 1345. (2) Endocarditis Status: Acute Location: Tricuspid valve. Diagnosed January 2018 at [facility] per TTE. Causative organism: MSSA and C. dublienesis. Inadequately treated due to the patient signing out AMA from [facility]. TTE completed 03/07/18 showed an EF of 60% with a thickened tricuspid posterior leaflet with a 5 mm x 8 mm nonmobile mass, consistent with vegetation. There is mild tricuspid regurgitation. Antibiotic recommendations as above. Qualifiers: Endocarditis type: infective Infective endocarditis organism: bacterial Chronicity: unspecified Qualified Code(s): I33.0 - Acute and subacute infective endocarditis (3) Candidemia Status: Resolved Causative organism: C. dublieniensis. Blood cultures drawn 01/22/18 at [facility] were positive 1/2 sets. Repeat blood cultures were negative for candidemia. Contaminant vs. true infection. Treated with caspofungin x6 days at [facility], but no treatment since 01/29/18. Previous opthalmology exam negative for endopthalmitis. Repeat cultures are negative for candidemia. (4) Cavitary lesion of lung Status: Acute Likely septic emboli from bacteremia and endocarditis. CXR 03/06/18 showed improved but persistent bilateral thin-walled cavitary lesions concerning for septic emboli. Antibiotic recommendations as above. (5) Chest pain Status: Acute Likely secondary to cavitary lung lesions/endocarditis. Pain management per the primary team. Qualifiers: Chest pain type: precordial pain Qualified Code(s): R07.2 - Precordial pain (6) Headache Status: Resolved Location: left frontal. CT of the head showed pain or nasal sinus mucosal thickening, worse in the left maxillary sinus which could be contributing to the patient's headache. New-onset since bacteremia. Denies blurred vision or floaters. Resolved. Qualifiers: Headache type: unspecified Headache chronicity pattern: episodic headache Intractability: not intractable Qualified Code(s): R51 - Headache (7) H/O intravenous drug use in remission Status: Acute Previous use of IV suboxone. Known Hep C positive. HIV nonreactive. Hepatitis B serologies show immunity - Subjective Interval history: Patient seen and examined. No acute events noted overnight. Patient states overall she feels better. Denies chest pain, shortness of breath, or cough. She denies any fevers or chills or rigors. She denies any nausea or vomiting or diarrhea. She does report 2 loose stools in the last 24 hours. She denies abdominal pain or urinary complaints. She states her appetite is good. She denies any oral thrush or any skin lesions. Infect Dis PN-Objective Data - Labs CBC & Chem 7: 03/09/18 06:03 03/09/18 06:03 Labs: Laboratory Results - last 24 hr 03/09/18 06:03 Sodium 137 Potassium 4.4 Chloride 103 Carbon Dioxide 25 BUN 20 Creatinine 0.76 Est GFR ( Amer) > 60 Est GFR (Non-Af Amer) > 60 BUN/Creatinine Ratio 26 Glucose 110 H Calculated Osmolality 287 Calcium 10.0 Total Bilirubin 0.3 Direct Bilirubin 0.1 Indirect Bilirubin 0.2 AST 72 H ALT 112 H Alkaline Phosphatase 84 Serum Total Protein 7.4 Albumin 4.3 Globulin 3.1 Albumin/Globulin Ratio 1.4 Cultures: Cultures 03/08/18 10:40 Blood Culture - Preliminary Peripheral Venipuncture Culture is incubating and being continuously monitored for growth. Final report to follow. 03/08/18 10:46 Blood Culture - Preliminary Peripheral Venipuncture Culture is incubating and being continuously monitored for growth. Final report to follow. 03/06/18 12:15 Blood Culture - Preliminary Peripheral Venipuncture Culture is incubating and being continuously monitored for growth. Final report to follow. 03/06/18 12:15 Blood Culture - Preliminary Peripheral Venipuncture Culture is incubating and being continuously mon itored for growth. Final report to follow. Serology 03/07/18 03/06/18 03/06/18 Range/Units 14:41 12:01 12:01 Urine Color Yellow (Yellow) Urine Clarity Clear (Clear) Urine pH 6.0 (5.0-8.0) pH Units Ur Specific [place] 1.007 L (1.010-1.025) Urine Protein Negative (Neg-Trace) mg/dL Urine Glucose (UA) Normal (Normal) mg/dL Urine Ketones Negative (Negative) mg/dL Urine Blood Negative (Negative) Urine Nitrite Negative (Negative) Urine Bilirubin Negative (Negative) Urine Urobilinogen Normal (Normal) mg/dL Ur Leukocyte Esterase Negative (Negative) Ur Culture Indicated? NO (NO) Urine Test Negative (Negative) Hep Bs Antigen Nonreactive (Nonreactive) Hep Bs Antibody 220.27 mIU/mL HIV Ag/Ab Combo Qual Nonreactive (Nonreactive) Exam - Constitutional Vitals: Temp Pulse Resp BP Pulse Ox 98.1 F 92 16 107/71 99 03/11/18 07:40 03/11/18 07:40 03/11/18 07:40 03/11/18 07:40 03/11/18 07:40 General appearance: average body habitus, cooperative, no acute distress - Head Head exam: Present: atraumatic, normal inspection, normocephalic - Eye Eye exam: Present: EOMI, normal appearance, PERRL Pupils: Present: normal accommodation Additional comments: No subconjunctival hemorrhage noted. - ENT ENT exam: Present: mucous membranes moist - Neck Neck exam: Present: normal inspection - Respiratory Respiratory exam: Present: CTAB. Absent: rales, respiratory distress, rhonchi, wheezes - Cardiovascular Cardiovascular exam: Present: RRR, +S1, +S2 - GI/Abdominal GI/Abdominal exam: Present: normal bowel sounds, soft. Absent: distended, tenderness - Extremities Exam Extremities exam: Present: normal inspection. Absent: joint swelling, pedal edema, tenderness - Neurological Exam Neurological exam: Present: alert, oriented X3, no focal deficits - Psychiatric Psychiatric exam: Present: normal affect, normal mood - Skin Skin exam: Present: dry, intact, normal color, warm Consult Discharge Plan - Plan Referrals: Carol Garcia CNP [Primary Care Provider] - 03/14/18 9:00 am (Please follow up as schedule...) Theresa Hall CNP [Advanced Practice Nurse] - 04/02/18 1:45 pm Prescriptions: RX: Nafcillin 2,000 mg IVPB Q4HR 7 Days #42 vial - Attending Attestation I examined this patient and my medical decision-making was reviewed with the Resident Physician. I agree with the documented findings, disposition and treatment plan as described except to the extent set forth below.
[2018-03-11 10:52] VITALS: BP 110/62
--- NOTE | 2018-03-11 18:50 | Discharge Summary ---
Orders not resulted at time of discharge: Pending orders 03/07/18 12:02 Fungal Culture,Blood [MYC] Stat 03/08/18 10:40 Culture,Blood [BC] Routine Date of Encounter: 03/11/18 Time of Encounter: 18:30 - Discharge Diagnosis (1) MSSA bacteremia Priority: Primary Status: Acute Assessment and Plan: 27 year old female with past medical history of endocarditis and pneumonia was sent from drug rehabilitation facility because of chest pain. Patient was here in the month of December when she was and was found to have endocarditis. After delivery patient was transferred to [facility] for further care patient received IV antibiotics and was told she had pneumonia. She was in ICU for 2-3 days. She was discharged to a skilled nursing with IV antibiotics however she left AMA because she felt worried about her baby. She has not had any antibiotic since then. She has been in a drug rehabilitation program for last several days however because of the on and off chest pain patient was asked by the doctor to come to ER. Patient has been having on-and-off chest pain aggravated by deep breath since she was discharged from [facility]. Pain is mostly on the left side of her chest occasionally on the right side. It is associated with fevers as well as night time chills. She has not been able to sleep well difficult due to chills. She has associated skin lesions on both her arms and both her legs. Patient's last IV drug use was before her last admission. Per ER doctor patient likely had MRSA bacteremia at [facility]. Patient was started on vancomycin and cefepime in the ER and received IV fluids. She was admitted with infective endocarditis and MSSA bacteremia likely secondary to intravenous drug use. She was started on nafcillin and ID was following. She was supposed to be discharged on 6-8 weeks of antibiotics with nafcillin once repeat cultures were negative. Patient disappeared from her room at about 2pm today. All efforts to locate her were futile (2) Endocarditis Priority: Primary Status: Acute Qualifiers: Endocarditis type: infective Infective endocarditis organism: bacterial Chronicity: unspecified Qualified Code(s): I33.0 - Acute and subacute infective endocarditis (3) Methamphetamine use Priority: Primary Status: Acute (4) Chest pain Priority: Primary Status: Acute Qualifiers: Chest pain type: precordial pain Qualified Code(s): R07.2 - Precordial pain (5) Cavitary lesion of lung Priority: Primary Status: Acute (6) Anxiety Priority: Primary Status: Acute (7) Candidemia Priority: Primary Status: Acute Hospital course: Ms. Mccain is a 27 year old female - Time Spent with Patient Total time spent providing and/or coordinating discharge services: - Discharge Medications Prescriptions: Nafcillin 2,000 mg IVPB Q4HR 7 Days #42 vial Home Medications: Nafcillin 2,000 mg IVPB Q4HR 7 Days #42 vial 03/09/18 [Rx] hydrOXYzine HCl [Hydroxyzine HCl] 25 mg PO Q6H PRN 03/10/18 [History] Allergies/Adverse Reactions: Allergy/AdvReac Type Severity Reaction Status Date / Time No Known Allergies Allergy Verified 02/07/18 23:47 Date of admission: 03/06/18 15:46 Primary care physician: Carol Garcia Consults: 03/06/18 15:59 Consult to Infectious Diseases [CONS] Routine Consulting Provider: Infectious Disease Shania Reason for Consult: endocarditis Call Completed: Yes 03/07/18 08:45 Consult to Tooling Supervisor [CONS] Routine Reason for SW Consult: pt was at drug rehab, return? 03/10/18 10:51 Consult to Invasive Line Access Team [CONS] Routine Reason for Consult: Picc Line Insertion Line Type: PICC PICC line indications: [facility]PC Med/Antibiotic - Constitutional Vitals: Temp Pulse Resp BP Pulse Ox 98.6 F 109 16 110/62 99 03/11/18 10:50 03/11/18 10:50 03/11/18 10:50 03/11/18 10:50 03/11/18 10:50 Exam: Constitutional: Vitals as noted. Conversant. No Apparent Distress. Respiratory : CTAB. No accessory muscle use, rales, Cardiovascular : RRR, +S1, +S2. Early soft murmur, no gallop, rubs. No chest wall tenderness GI/Abdominal : Soft, Non-tender, Non-distended, normal bowel sounds, soft, no peritoneal signs. no orgenomegaly or mass appreciated. no hernia. Musculoskeletal: no deformity noted. no edema or cyanosis. warm extremities, pulses palpable and symmetrical in UE/LE. no calf tenderness. Neurological: AO X3, CN II-XII grossly intact, grossly normal motor and sensory exam. Skin: Papular non-tender lesion located on both arms and legs. - Patient Status Disposition: Left Against Medical Advice Condition: Undetermined - Discharge Instructions Follow Up With: Theresa Hall CNP [Advanced Practice Nurse] - 04/02/18 1:45 pm Carol Garcia CNP [Primary Care Provider] - 03/14/18 9:00 am (Please follow up as schedule...)
== END 2018-03-11 14:14 | disposition left against medical advice (07) | DRG 566 ==
LOC: 3BNU 11:20 → EMEROOARM 11:20 → SUATTDRO 15:46 → 2ANU 16:32
PROVIDERS: ADMIT Internal Medicine; ATTEND Internal Medicine

== ENCOUNTER → 2020-06-11 04:35 | Observation (INO) ==
[2020-06-11 04:28] LABS: Amorphous Sediment,Urine Few per hpf (None-Few); Amphetamine Screen,Urine Positive ng/mL (Cutoff=1000); Bacteria,Urine Few per hpf (None-Few); Barbiturate Screen,Urine Negative ng/mL (Cutoff=200); Benzodiazepines Screen,Urine Negative ng/mL (Cutoff=200); Bilirubin,Urine Negative (Negative); Blood,Urine Negative (Negative); Cannabinoid Screen,Urine Positive ng/mL (Cutoff = 50); Clarity,Urine Turbid (Clear); Cocaine Screen,Urine Negative ng/mL (Cutoff= 300); Color,Urine Yellow (Yellow); Glucose,Urine (UA) Normal (Normal); Ketones,Urine Negative (Negative); Leukocyte Esterase,Urine Moderate (Negative); Mucus,Urine Few per lpf (None-Few); Nitrite,Urine Positive (Negative); Opiate Screen,Urine Negative ng/mL (Cutoff=300); PH,Urine 7.5 pH Units (5.0-8.0); Phencyclidine Screen,Urine Negative ng/mL (Cutoff=25); Protein,Urine Trace mg/dL (Neg-Trace); RBC,Urine 0-3 per hpf (0-3); Specific Gravity,Urine 1.022 (1.010-1.025); Squamous Epithelial Cell,Urine Few per hpf (None-Few); Urobilinogen,Urine Normal (Normal); WBC,Urine 15-30 per hpf (0-3)
[2020-06-11 05:07] LABS: Rubella IgG Antibody POSITIVE (POSITIVE); Varicella Zoster IgG Antibody Positive
[2020-06-11 05:13] LABS: Hepatitis B Surface Antigen Nonreactive (Nonreactive)
[2020-06-11 05:42] LABS: HIV-1&2 Antibody & p24 Ag Nonreactive (Nonreactive)
== END | disposition home or self-care (01) ==
LOC: 1NENULAB
PROVIDERS: ADMIT Obstetrics & Gynecology; ATTEND Obstetrics & Gynecology

== ENCOUNTER 2020-07-14 01:27 | Inpatient (IN) ==
[~2020-07-14 01:27] MED LIST changes: -Famotidine 20 MG/2 ML VIAL IVP PRN; -Ondansetron 4 MG/2 ML VIAL IVP PRN; -Penicillin G Potassium 5,000,000 UNIT in 0.9 % Sodium Chloride Mini Bag 100 ML IVPB ONE; -Ringers Solution, Lactated 1,000 ML IVC SCH; -Ringers Solution, Lactated 1,000 ML ONE; -cefTRIAXone 1,000 MG in 0.9 % Sodium Chloride Mini Bag 100 ML IVPB ONE
[2020-07-14] MEDS ORDERED: Oxytocin 20 units/ LR 1000 mL 20 UNIT/1,000 ML BAG IVC SCH (02:39)
[2020-07-14] MEDS ORDERED: Ibuprofen 600 MG TABLET PO PRN (02:39)
[2020-07-14] MEDS ORDERED: Lanolin 7 G OINT...G. TP PRN (02:39)
[2020-07-14] MEDS ORDERED: Rho Immune Globulin 1,500 UNIT SYRINGE IM PRN (02:39)
[2020-07-14] MEDS ORDERED: Benzocaine/Menthol 56 GM AEROSOL SPRAY TP PRN (02:39)
[2020-07-14] MEDS ORDERED: Acetaminophen 325 MG TABLET PO PRN (02:39)
[2020-07-14 02:51] LABS: Basophils % 0.2 %; Hematocrit 32.9 % (35.3-44.9); Immature Granulocytes % 1.3 % (0-4); Lymphocytes # 0.4 K/mcL (0.6-4.6); Lymphocytes % 2.4 %; Mean Corpuscular HGB Conc 33.4 g/dL (31.6-35.5); Mean Corpuscular Hemoglobin 31.2 pg (28.0-33.3); Mean Corpuscular Volume 93.2 fL (83.0-100.0); Mean Platelet Volume 10.4 fL (9.4-12.4); Monocytes # 0.6 K/mcL (0.0-1.3); Monocytes % 3.6 %; Neutrophils # 15.4 K/mcL (1.6-8.9); Platelet Count 133 K/mcL (140-400); Red Blood Count 3.53 M/mcL (3.82-4.97); Red Cell Distribution Width 13.5 % (11.5-14.5); Segmented Neutrophils % 92.5 %; White Blood Count 16.6 K/mcL (4.3-11.1)
[2020-07-14 03:07] LABS: Alanine Aminotransferase 16 Units/L (7-52); Aspartate Amino Transferase 15 Units/L (13-39); BUN/Creatinine Ratio 13 (6-26); Blood Urea Nitrogen 9 mg/dL (6-20); Lactate Dehydrogenase 231 Units/L (140-271); Uric Acid 6.1 mg/dL (2.3-7.6); eGFR For African Americans > 60 (> 60); eGFR For Non-African Americans > 60 (> 60)
[2020-07-14] MEDS: Prenatal Vit/FA 1 EACH TABLET PO SCH (08:27)
[2020-07-14] MEDS: hydrOXYzine pamoate 25 MG CAPSULE PO PRN (12:00)
[2020-07-14] MEDS: cloNIDine HCL 0.1 MG TABLET PO SCH ×3 (14:10→21:51)
[2020-07-15 05:18] LABS: Basophils % 0.2 %; Hematocrit 28.2 % (35.3-44.9); Hemoglobin 9.5 g/dL (11.5-15.4); Immature Granulocytes % 1.8 % (0-4); Lymphocytes # 0.5 K/mcL (0.6-4.6); Lymphocytes % 3.6 %; Mean Corpuscular HGB Conc 33.7 g/dL (31.6-35.5); Mean Corpuscular Hemoglobin 31.5 pg (28.0-33.3); Mean Corpuscular Volume 93.4 fL (83.0-100.0); Monocytes # 0.8 K/mcL (0.0-1.3); Monocytes % 5.3 %; Neutrophils # 13.1 K/mcL (1.6-8.9); Platelet Count 178 K/mcL (140-400); Red Blood Count 3.02 M/mcL (3.82-4.97); Red Cell Distribution Width 13.9 % (11.5-14.5); Segmented Neutrophils % 89.1 %; White Blood Count 14.7 K/mcL (4.3-11.1)
[2020-07-15] MEDS: hydrOXYzine pamoate 25 MG CAPSULE PO PRN (05:21)
[2020-07-15 08:10] VITALS: BP 139/85
[2020-07-15] MEDS: Prenatal Vit/FA 1 EACH TABLET PO SCH (08:50)
[2020-07-15] MEDS: cloNIDine HCL 0.1 MG TABLET PO SCH (08:50)
[2020-07-15] MEDS ORDERED: cloNIDine HCL 0.1 MG TABLET PO SCH (15:00)
== END 2020-07-15 12:20 | disposition left against medical advice (07) | DRG 560 ==
LOC: 1NENULAB → 1NENUOBS 03:20
PROVIDERS: ADMIT Advanced Practice Midwife; ATTEND Advanced Practice Midwife